=== PATIENT | female | born 1940 | race Caucasian/White ===

== ENCOUNTER → 2017-05-06 | Outpatient (REF) | payer MEDICARE, BC ==
[~2017-05-06] MED LIST: /ADVA50050; /FEXO18TA; /LANS30GR; /VERA40TA; /WARF2TA; /WARF5TA; ACET65TA; DIGO0.126; HYDRODIURIL; MICA80TA; NORV5TAB; VALI5TAB; XOPE1.252; [UNRECOGNIZED DRUG - CODE]
== END ==
LOC: M LAB REF 13:25
PROVIDERS: ATTEND Internal Medicine
DX: I48.2 Chronic atrial fibrillation (principal)

== ENCOUNTER → 2017-09-23 | Outpatient (REF) | payer MEDICARE, BC ==
[2017-09-23 20:43] LABS: DIGOXIN LEVEL 0.4 NG/ML (0.5-2.0); IRON (FE) 77 UG/DL (50-170); PERCENT SATURATION 23.2 % (13.2-45.0); TOTAL IRON BINDING CAPACITY 332 UG/DL (250-450)
== END ==
LOC: M LAB REF 18:24
DX: I48.2 Chronic atrial fibrillation (principal); N18.3 Chronic kidney disease, stage 3 (moderate); D64.9 Anemia, unspecified
CPT/HCPCS: 80162

== ENCOUNTER → 2018-04-27 | Outpatient (REF) | payer MEDICARE, BC ==
[2018-04-28 13:28] LABS: DIGOXIN LEVEL 0.4 NG/ML (0.5-2.0)
[2018-04-28 13:28] LABS: C REACTIVE PROTEIN QUANTITATIV 1.16 MG/DL (0.00-0.30)
== END ==
LOC: M LAB REF 04-28 11:52
DX: R50.9 Fever, unspecified (principal); I48.2 Chronic atrial fibrillation
CPT/HCPCS: 80162

== ENCOUNTER 2018-05-25 15:52 | Emergency (ER) | payer MEDICARE, BC ==
[2018-05-25 16:49] LABS: BASO % 0.3 % (0.0-1.0); EOS # 0.1 10^3/uL (0.0-0.50); EOS % 1.9 % (0.0-3.0); HEMATOCRIT 36.4 % (36.0-47.0); HEMOGLOBIN 11.9 g/dl (12.0-15.5); IMMATURE GRANULOCYTE % 0.5 % (0-3.0); LYMPH % 26.5 % (24.0-44.0); MEAN CORPUSCULAR HEMOGLOBIN 31.9 pg (27.0-33.0); MEAN CORPUSCULAR HGB CONC 32.7 g/dl (32.0-36.5); MEAN CORPUSCULAR VOLUME 97.6 fl (80.0-96.0); MONO # 0.8 10^3/uL (0.0-0.8); MONO % 10.5 % (0.0-5.0); NEUTROPHILS # 4.6 10^3/uL (1.8-7.7); NEUTROPHILS % 60.3 % (36.0-66.0); PLATELET COUNT, AUTOMATED 187 10^3/uL (150-450); RED BLOOD COUNT 3.73 10^6/uL (4.00-5.40); RED CELL DISTRIBUTION WIDTH 13.5 % (11.5-14.5); WHITE BLOOD COUNT 7.5 10^3/uL (4.0-10.0)
[2018-05-25 17:09] LABS: INR 2.33
[2018-05-25 17:36] LABS: ALBUMIN 3.4 GM/DL (3.2-5.2); ALBUMIN/GLOBULIN RATIO 0.97 (1.00-1.93); ALKALINE PHOSPHATASE 88 U/L (45-117); ALT/SGPT 25 U/L (12-78); ANION GAP 7 MEQ/L (8-16); AST/SGOT 22 U/L (7-37); BILIRUBIN,TOTAL 0.5 MG/DL (0.2-1.0); BLOOD UREA NITROGEN 16 MG/DL (7-18); CALCIUM LEVEL 8.7 MG/DL (8.8-10.2); CARBON DIOXIDE LEVEL 31 MEQ/L (21-32); CHLORIDE LEVEL 106 MEQ/L (98-107); CREATININE FOR GFR 0.66 MG/DL (0.55-1.30); DIGOXIN LEVEL 0.3 NG/ML (0.5-2.0); GLOMERULAR FILTRATION RATE > 60.0 (>39); GLUCOSE, FASTING 95 MG/DL (70-100); POTASSIUM SERUM 3.6 MEQ/L (3.5-5.1); SODIUM LEVEL 144 MEQ/L (136-145); TOTAL PROTEIN 6.9 GM/DL (6.4-8.2)
[2018-05-25 18:20] LABS: ABO/RH TYPE MANUAL 1 1
[2018-05-25] MEDS: ACETAMINOPHEN 325 MG TAB PO (19:06)
[2018-05-25] MEDS: ONDANSETRON 4MG/2ML VIAL (J2405) IV (19:22)
== END 2018-05-25 19:30 | disposition short-term general hospital (02) ==
LOC: M ED 15:52
DX: S06.5X0A Traumatic subdural hemorrhage without loss of consciousness, initial encounter (principal); W01.198A Fall on same level from slipping, tripping and stumbling with subsequent striking against other object, initial encounter; Y92.096 Garden or yard of other non-institutional residence as the place of occurrence of the external cause; I48.91 Unspecified atrial fibrillation; I10 Essential (primary) hypertension; J45.909 Unspecified asthma, uncomplicated; E78.9 Disorder of lipoprotein metabolism, unspecified; Z88.6 Allergy status to analgesic agent; Z88.5 Allergy status to narcotic agent; Z88.0 Allergy status to penicillin; Z79.899 Other long term (current) drug therapy; Z79.01 Long term (current) use of anticoagulants
CPT/HCPCS: J2405

== ENCOUNTER → 2018-06-05 | Outpatient (CLI) | payer MEDICARE, BC | LOC: M RAD 12:11 | DX: G81.91 Hemiplegia, unspecified affecting right dominant side (principal) | CPT/HCPCS: 70450 ==

== ENCOUNTER 2018-06-08 16:01 | Emergency (ER) | payer MEDICARE, BC ==
[2018-06-08 17:45] LABS: KETONE, URINE AUTO RFX NEGATIVE (NEGATIVE); MUCUS, URINE RFX SMALL (NEGATIVE); NITRITE, URINE AUTO RFX NEGATIVE (NEGATIVE); RBC, URINE AUTO RFX 2 /HPF (0-3); SPECIFIC GRAVITY UR AUTO RFX 1.015 (1.002-1.035); SQUAM EPITHELIAL CELL UR AURFX 0 /HPF (0-6); WBC, URINE AUTO RFX 4 /HPF (0-3); YEAST LIKE CELL URINE AUTO RFX SMALL
[2018-06-08] MEDS: hydrALAZINE INJ 20 MG/ML VIAL IV ×2 (18:09→18:41)
[2018-06-08 18:26] LABS: BASO % 0.3 % (0.0-1.0); EOS % 0.2 % (0.0-3.0); HEMATOCRIT 34.5 % (36.0-47.0); HEMOGLOBIN 11.7 g/dl (12.0-15.5); IMMATURE GRANULOCYTE % 0.5 % (0-3.0); LYMPH % 13.6 % (24.0-44.0); MEAN CORPUSCULAR HEMOGLOBIN 32.1 pg (27.0-33.0); MEAN CORPUSCULAR HGB CONC 33.9 g/dl (32.0-36.5); MEAN CORPUSCULAR VOLUME 94.5 fl (80.0-96.0); MONO # 1.5 10^3/uL (0.0-0.8); MONO % 9.9 % (0.0-5.0); NEUTROPHILS # 11.1 10^3/uL (1.8-7.7); NEUTROPHILS % 75.5 % (36.0-66.0); PLATELET COUNT, AUTOMATED 424 10^3/uL (150-450); RED BLOOD COUNT 3.65 10^6/uL (4.00-5.40); RED CELL DISTRIBUTION WIDTH 13.1 % (11.5-14.5); WHITE BLOOD COUNT 14.7 10^3/uL (4.0-10.0)
[2018-06-08 19:05] LABS: ALBUMIN 2.8 GM/DL (3.2-5.2); ALBUMIN/GLOBULIN RATIO 0.68 (1.00-1.93); ALKALINE PHOSPHATASE 93 U/L (45-117); ALT/SGPT 66 U/L (12-78); ANION GAP 6 MEQ/L (8-16); AST/SGOT 45 U/L (7-37); BILIRUBIN,DIRECT 0.2 MG/DL (0.0-0.2); BILIRUBIN,TOTAL 0.6 MG/DL (0.2-1.0); BLOOD UREA NITROGEN 15 MG/DL (7-18); CALCIUM LEVEL 8.6 MG/DL (8.8-10.2); CARBON DIOXIDE LEVEL 31 MEQ/L (21-32); CHLORIDE LEVEL 98 MEQ/L (98-107); CREATININE FOR GFR 0.49 MG/DL (0.55-1.30); GLOMERULAR FILTRATION RATE > 60.0 (>39); GLUCOSE, FASTING 119 MG/DL (70-100); POTASSIUM SERUM 4.5 MEQ/L (3.5-5.1); SODIUM LEVEL 135 MEQ/L (136-145); TOTAL PROTEIN 6.9 GM/DL (6.4-8.2)
[2018-06-08 19:13] LABS: LEUKOCYTE ESTERASE UR AUTO RFX TRACE (NEGATIVE)
[2018-06-08 19:24] LABS: CK-MB VALUE MASS < 1.0 NG/ML (<3.6); CPK CREATINE PHOSPHOKINASE 32 U/L (26-192); DIGOXIN LEVEL 0.2 NG/ML (0.5-2.0); MB/CK RELATIVE INDEX 3.12 (< OR =4); TROPONIN I < 0.02 NG/ML (< 0.10)
[2018-06-08 19:25] LABS: ETHYL ALCOHOL (ETHANOL) < 0.003 % (0.000-0.010)
== END 2018-06-08 18:54 | disposition short-term general hospital (02) ==
LOC: M ED 16:01
DX: S06.5X0D Traumatic subdural hemorrhage without loss of consciousness, subsequent encounter (principal); W19.XXXD Unspecified fall, subsequent encounter; I48.91 Unspecified atrial fibrillation; J44.9 Chronic obstructive pulmonary disease, unspecified; I10 Essential (primary) hypertension; Z79.899 Other long term (current) drug therapy; Z79.82 Long term (current) use of aspirin; Z79.01 Long term (current) use of anticoagulants; Z88.0 Allergy status to penicillin; Z88.5 Allergy status to narcotic agent; Z88.6 Allergy status to analgesic agent; I73.9 Peripheral vascular disease, unspecified
CPT/HCPCS: 71046

== ENCOUNTER → 2018-06-08 | Outpatient (CLI) | payer MEDICARE, BC | LOC: M RAD 10:31 | DX: I73.9 Peripheral vascular disease, unspecified (principal); S06.5X0D Traumatic subdural hemorrhage without loss of consciousness, subsequent encounter ==

== ENCOUNTER → 2018-06-22 | Outpatient (REF) ==
[2018-06-22 15:12] LABS: ANION GAP 7 MEQ/L (8-16); BLOOD UREA NITROGEN 8 MG/DL (7-18); CALCIUM LEVEL 8.4 MG/DL (8.8-10.2); CARBON DIOXIDE LEVEL 34 MEQ/L (21-32); CHLORIDE LEVEL 102 MEQ/L (98-107); CREATININE FOR GFR 0.41 MG/DL (0.55-1.30); GLOMERULAR FILTRATION RATE > 60.0 (>39); GLUCOSE, FASTING 132 MG/DL (70-100); POTASSIUM SERUM 3.2 MEQ/L (3.5-5.1); SODIUM LEVEL 143 MEQ/L (136-145)
== END ==
LOC: SKLAB3 10:49
DX: S06.5X0A Traumatic subdural hemorrhage without loss of consciousness, initial encounter (principal)

== ENCOUNTER → 2018-06-29 | Outpatient (REF) ==
[2018-06-29 09:46] LABS: ANION GAP 6 MEQ/L (8-16); BLOOD UREA NITROGEN 8 MG/DL (7-18); CALCIUM LEVEL 8.2 MG/DL (8.8-10.2); CARBON DIOXIDE LEVEL 34 MEQ/L (21-32); CHLORIDE LEVEL 103 MEQ/L (98-107); CREATININE FOR GFR 0.34 MG/DL (0.55-1.30); GLOMERULAR FILTRATION RATE > 60.0 (>39); GLUCOSE, FASTING 99 MG/DL (70-100); POTASSIUM SERUM 3.2 MEQ/L (3.5-5.1); SODIUM LEVEL 143 MEQ/L (136-145)
== END ==
LOC: SKLAB3 07:15
DX: S06.5X0A Traumatic subdural hemorrhage without loss of consciousness, initial encounter (principal)

== ENCOUNTER 2018-06-30 10:19 | Emergency (ER) | payer MEDICARE, BC ==
[2018-06-30 12:03] LABS: BASO % 0.3 % (0.0-1.0); EOS # 0.1 10^3/uL (0.0-0.50); EOS % 1.4 % (0.0-3.0); HEMATOCRIT 31.8 % (36.0-47.0); HEMOGLOBIN 10.2 g/dl (12.0-15.5); IMMATURE GRANULOCYTE % 0.5 % (0-3.0); LYMPH # 2.4 10^3/uL (1.5-4.5); LYMPH % 36.8 % (24.0-44.0); MEAN CORPUSCULAR HEMOGLOBIN 30.9 pg (27.0-33.0); MEAN CORPUSCULAR HGB CONC 32.1 g/dl (32.0-36.5); MEAN CORPUSCULAR VOLUME 96.4 fl (80.0-96.0); MONO # 0.6 10^3/uL (0.0-0.8); MONO % 9.7 % (0.0-5.0); NEUTROPHILS # 3.4 10^3/uL (1.8-7.7); NEUTROPHILS % 51.3 % (36.0-66.0); PLATELET COUNT, AUTOMATED 297 10^3/uL (150-450); RED CELL DISTRIBUTION WIDTH 13.8 % (11.5-14.5); WHITE BLOOD COUNT 6.6 10^3/uL (4.0-10.0)
[2018-06-30 12:40] LABS: ALBUMIN 2.6 GM/DL (3.2-5.2); ALKALINE PHOSPHATASE 74 U/L (45-117); ALT/SGPT 25 U/L (12-78); ANION GAP 6 MEQ/L (8-16); AST/SGOT 19 U/L (7-37); BILIRUBIN,DIRECT 0.2 MG/DL (0.0-0.2); BILIRUBIN,TOTAL 0.6 MG/DL (0.2-1.0); BLOOD UREA NITROGEN 6 MG/DL (7-18); CALCIUM LEVEL 8.6 MG/DL (8.8-10.2); CARBON DIOXIDE LEVEL 33 MEQ/L (21-32); CHLORIDE LEVEL 103 MEQ/L (98-107); CK-MB VALUE MASS < 1.0 NG/ML (<3.6); CPK CREATINE PHOSPHOKINASE 39 U/L (26-192); CREATININE FOR GFR 0.32 MG/DL (0.55-1.30); GLOMERULAR FILTRATION RATE > 60.0 (>39); GLUCOSE, FASTING 109 MG/DL (70-100); MB/CK RELATIVE INDEX 2.56 (< OR =4); POTASSIUM SERUM 3.2 MEQ/L (3.5-5.1); SODIUM LEVEL 142 MEQ/L (136-145); TOTAL PROTEIN 6.3 GM/DL (6.4-8.2); TROPONIN I < 0.02 NG/ML (< 0.10)
[2018-06-30 13:09] LABS: DIGOXIN LEVEL 0.2 NG/ML (0.5-2.0)
[2018-06-30 13:28] LABS: INR 1.12; PROTHROMBIN TIME 14.6 SECONDS (12.1-14.4)
[2018-06-30 13:29] LABS: PARTIAL THROMBOPLASTIN TIME 30.2 SECONDS (25.4-37.6)
[2018-06-30] MEDS: POTASSIUM CHLORIDE 10 MEQ SR TABLET PO (16:53)
== END 2018-06-30 17:23 | disposition home or self-care (01) ==
LOC: M ED 10:19
DX: R29.6 Repeated falls (principal); I10 Essential (primary) hypertension; I48.91 Unspecified atrial fibrillation; J30.9 Allergic rhinitis, unspecified; H40.9 Unspecified glaucoma; Z86.79 Personal history of other diseases of the circulatory system; Z88.6 Allergy status to analgesic agent; Z88.5 Allergy status to narcotic agent; Z88.0 Allergy status to penicillin; Z79.899 Other long term (current) drug therapy; Z79.82 Long term (current) use of aspirin
CPT/HCPCS: 70450

== ENCOUNTER → 2018-07-06 | Outpatient (REF) ==
[2018-07-06 08:45] LABS: ANION GAP 7 MEQ/L (8-16); BLOOD UREA NITROGEN 9 MG/DL (7-18); CALCIUM LEVEL 8.9 MG/DL (8.8-10.2); CARBON DIOXIDE LEVEL 33 MEQ/L (21-32); CHLORIDE LEVEL 102 MEQ/L (98-107); CREATININE FOR GFR 0.43 MG/DL (0.55-1.30); GLOMERULAR FILTRATION RATE > 60.0 (>39); GLUCOSE, FASTING 109 MG/DL (70-100); SODIUM LEVEL 142 MEQ/L (136-145)
== END ==
LOC: SKLAB3 07:00
DX: E87.1 Hypo-osmolality and hyponatremia (principal)

== ENCOUNTER → 2018-07-10 | Outpatient (REF) ==
[2018-07-10 11:50] LABS: ANION GAP 5 MEQ/L (8-16); BLOOD UREA NITROGEN 10 MG/DL (7-18); CALCIUM LEVEL 8.6 MG/DL (8.8-10.2); CARBON DIOXIDE LEVEL 32 MEQ/L (21-32); CHLORIDE LEVEL 107 MEQ/L (98-107); CREATININE FOR GFR 0.56 MG/DL (0.55-1.30); GLOMERULAR FILTRATION RATE > 60.0 (>39); GLUCOSE, FASTING 134 MG/DL (70-100); POTASSIUM SERUM 3.6 MEQ/L (3.5-5.1); SODIUM LEVEL 144 MEQ/L (136-145)
== END ==
LOC: SKLAB3 07:00
DX: I10 Essential (primary) hypertension (principal); E87.1 Hypo-osmolality and hyponatremia

== ENCOUNTER 2018-07-11 14:33 | Emergency (ER) | payer MEDICARE, BC | END 2018-07-11 15:56 | disposition home or self-care (01) | LOC: M ED 14:33 | DX: Z04.89 Encounter for examination and observation for other specified reasons (principal); W07.XXXA Fall from chair, initial encounter; Y92.128 Other place in nursing home as the place of occurrence of the external cause; I10 Essential (primary) hypertension; E78.5 Hyperlipidemia, unspecified; I48.91 Unspecified atrial fibrillation; Z79.899 Other long term (current) drug therapy; Z79.82 Long term (current) use of aspirin; Z88.0 Allergy status to penicillin; Z88.5 Allergy status to narcotic agent; Z88.8 Allergy status to other drugs, medicaments and biological substances | CPT/HCPCS: 70450 ==

== ENCOUNTER → 2018-07-15 | Outpatient (REF) ==
[2018-07-15 15:18] LABS: AMORPHOUS SEDIMENT LARGE (NEGATIVE); APPEARANCE, URINE TURBID (CLEAR); BACTERIA, URINE AUTO 2+ (NEGATIVE); BILIRUBIN, URINE AUTO NEGATIVE (NEGATIVE); BLOOD, URINE BLOOD NEGATIVE (NEGATIVE); COLOR, URINE YELLOW (YELLOW); GLUCOSE, URINE (UA) AUTO NEGATIVE (NEGATIVE); KETONE, URINE AUTO NEGATIVE (NEGATIVE); LEUKOCYTE ESTERASE, URINE AUTO 2+ (NEGATIVE); MUCUS, URINE SMALL (NEGATIVE); NITRITE, URINE AUTO NEGATIVE (NEGATIVE); PROTEIN, URINE AUTO 2+ mg/dL (NEGATIVE); RBC, URINE AUTO 0 /HPF (0-3); SQUAMOUS EPITHELIAL CELL UR AU 2 /HPF (0-6); UROBILINOGEN, URINE AUTO 0.2 mg/dL (0.0-2.0); WBC, URINE AUTO TNTC /HPF (0-3)
== END ==
LOC: SKLAB3 14:42
DX: R82.90 Unspecified abnormal findings in urine (principal)

== ENCOUNTER → 2018-07-20 | Outpatient (REF) ==
[2018-07-22 14:16] LABS: LEVETIRACETAM (KEPPRA) 21.6 ug/mL (10.0-40.0)
== END ==
LOC: SKLAB3 07:00
DX: Z51.81 Encounter for therapeutic drug level monitoring (principal); Z79.899 Other long term (current) drug therapy

== ENCOUNTER → 2018-07-29 | Outpatient (REF) | LOC: SKLAB3 08:20 | DX: R00.2 Palpitations (principal) ==

== ENCOUNTER → 2018-08-03 | Outpatient (REF) ==
[2018-08-03 08:31] LABS: HEMOGLOBIN 10.6 g/dl (12.0-15.5); MEAN CORPUSCULAR HGB CONC 31.2 g/dl (32.0-36.5); MEAN CORPUSCULAR VOLUME 99.4 fl (80.0-96.0); PLATELET COUNT, AUTOMATED 248 10^3/uL (150-450); RED BLOOD COUNT 3.42 10^6/uL (4.00-5.40); RED CELL DISTRIBUTION WIDTH 13.6 % (11.5-14.5); WHITE BLOOD COUNT 7.5 10^3/uL (4.0-10.0)
[2018-08-03 09:14] LABS: ANION GAP 8 MEQ/L (8-16); BLOOD UREA NITROGEN 11 MG/DL (7-18); CALCIUM LEVEL 8.7 MG/DL (8.8-10.2); CARBON DIOXIDE LEVEL 30 MEQ/L (21-32); CHLORIDE LEVEL 103 MEQ/L (98-107); CHOLESTEROL LEVEL 139 MG/DL (<200); CHOLESTEROL RISK RATIO 3.475 (<5); CREATININE FOR GFR 0.48 MG/DL (0.55-1.30); DIGOXIN LEVEL 0.2 NG/ML (0.5-2.0); GLOMERULAR FILTRATION RATE > 60.0 (>32); GLUCOSE, FASTING 90 MG/DL (70-100); HDL CHOLESTEROL 40 MG/DL (>40); LDL CHOLESTEROL 72 MG/DL (<100); NON-HDL-C 99 MG/DL; POTASSIUM SERUM 4.1 MEQ/L (3.5-5.1); SODIUM LEVEL 141 MEQ/L (136-145); TRIGLYCERIDES LEVEL 133 MG/DL (<150)
[2018-08-06 14:15] LABS: LEVETIRACETAM (KEPPRA) 24.7 ug/mL (10.0-40.0)
== END ==
LOC: SKLAB3 12:44
DX: E78.5 Hyperlipidemia, unspecified (principal)

== ENCOUNTER → 2018-08-13 | Outpatient (REF) ==
[~2018-08-13] MED LIST changes: +ALB2.5NEB INH; +ALBU17IN2 INH; +ASPI1TAB PO; +ASPI81TAEC PO; +ATOR1TAB19 PO; +AZOP0.2S OU; +CETI10CH PO; +CETI10TA PO; +COLA100C5 PO; +DULC10SU2 PR; +ENEMENE16 PR; +ENSU-12 PO; +ENSULIQ64 PO; +IRBE300T10 PO; +KEPP1TAB2 PO; +LANO62.5 PO; +LORA10TA3 PO; +MILK12002 PO; +MONT10TA2 PO; +OCUVTAB4 PO; +PANT40TA3 PO; +POTA10TA16 PO; +PRED10TA2 PO; +ROBILIQ22 PO; +SODI1TAB6 PO; +TIMO0.5S29 OU; +TYLE325T5 PO; +VERA100C PO; +VIMP100T PO; +XALA0.007 OU
[2018-08-13 15:15] LABS: INFLUENZA A AMPLIFICATION NEGATIVE (NEGATIVE); INFLUENZA B AMPLIFICATION NEGATIVE (NEGATIVE)
== END ==
LOC: SKLAB3 14:22
PROVIDERS: ATTEND Internal Medicine
DX: J06.9 Acute upper respiratory infection, unspecified (principal)

== ENCOUNTER 2018-08-15 09:05 | Inpatient (IN) | payer MEDICARE, BC ==
[~2018-08-15] VITALS: Ht 144.8 cm; Wt 60.5 kg
[2018-08-15] MEDS: levETIRAcetam 250MG TABLET (KEPPRA) PO SCH ×2 (09:00→20:11)
[2018-08-15] MEDS: IRBESARTAN 150 MG TAB PO SCH (09:00)
[2018-08-15] MEDS: LACOSAMIDE 50 MG TAB (VIMPAT) PO SCH ×2 (09:00→20:11)
[~2018-08-15 09:05] MED LIST changes: -ALB2.5NEB INH; -ENSULIQ64 PO; -PRED10TA2 PO
[2018-08-15] MEDS ORDERED: ENSULIQ64 PO (09:36)
[2018-08-15] MEDS ORDERED: ALB2.5NEB INH (09:36)
[2018-08-15] MEDS ORDERED: PRED10TA2 PO (09:36)
[2018-08-15] MEDS ORDERED: ACETAMINOPHEN 325 MG TAB PO ONE (09:45)
--- NOTE | 2018-08-15 09:47 | REP ---
Clinical: Trauma. Technique: AP and lateral views of the left humerus. Findings: Age-related osteopenia and degenerative changes at the shoulder noted. No acute fracture dislocation. No subcutaneous emphysema or radiodense foreign body. Impression: No acute fracture dislocation. Electronically Signed by Garfield Gutierrez MD 08/15/2018 09:39 A
--- NOTE | 2018-08-15 09:47 | REP ---
Clinical: Trauma. Comparison: 06/30/2018 . Findings: Age-related atrophy and microvascular ischemic changes are appreciated. The ventricles and sulci are symmetric. Marques-white differentiation is maintained. There is no evidence for acute intracranial hemorrhage, mass/mass effect, pathology or infarction. No extra-axial fluid collection. Calvarium is intact. Partial opacification of the ethmoid air cells suggest mild sinus disease. Impression: Age related atrophy and microvascular ischemic changes. No acute intracranial hemorrhage, infarction, or mass/mass effect. Mild ethmoid sinus disease. Electronically Signed by Garfield Gutierrez MD 08/15/2018 09:39 A
--- NOTE | 2018-08-15 09:50 | REP ---
Clinical: Trauma. Technique: Axial noncontrast images from the skull base to the thoracic inlet with coronal and sagittal re-formations. Comparison: 07/11/2018. Findings: Alignment and lordosis maintained. No acute fracture / compression injury or subluxation. Advanced multilevel degenerative disc osteophyte complexes are appreciated and predominantly noted at the C5-6 level where posterior osteophytes cause chronic canal stenosis to approximately 5.7 mm AP diameter. Posterior elements and spinous processes are intact. Prevertebral soft tissues are normal. Impression: 1. Chronic stable degenerative changes. No evidence for cervical spine trauma/injury. 2. Stable advanced multilevel degenerative changes primarily at C5-6 where posterior osteophytes and calcification of the ligamentous causes chronic canal stenosis. Electronically Signed by Garfield Gutierrez MD 08/15/2018 09:42 A
--- NOTE | 2018-08-15 09:51 | REP ---
Clinical: Trauma. Technique: AP, lateral, bilateral oblique views of the right wrist. Findings: Age-related osteopenia and arthritic degenerative changes are appreciated including joint space narrowing at the radiocarpal joint as well as irregularities and chronic mild subluxation at the first carpometacarpal joint. No obvious acute fracture dislocation. Impression: Osteopenia and degenerative changes. No obvious acute fracture or dislocation identified. Electronically Signed by Garfield Gutierrez MD 08/15/2018 09:43 A
[2018-08-15 10:05] LABS: BASO % 0.6 % (0.0-1.0); EOS # 0.2 10^3/uL (0.0-0.50); EOS % 3.1 % (0.0-3.0); HEMATOCRIT 34.6 % (36.0-47.0); LYMPH # 1.7 10^3/uL (1.5-4.5); LYMPH % 26.7 % (24.0-44.0); MEAN CORPUSCULAR HGB CONC 31.8 g/dl (32.0-36.5); MEAN CORPUSCULAR VOLUME 97.5 fl (80.0-96.0); MONO # 0.7 10^3/uL (0.0-0.8); MONO % 10.8 % (0.0-5.0); NEUTROPHILS # 3.7 10^3/uL (1.8-7.7); NEUTROPHILS % 58.5 % (36.0-66.0); PLATELET COUNT, AUTOMATED 212 10^3/uL (150-450); RED BLOOD COUNT 3.55 10^6/uL (4.00-5.40); WHITE BLOOD COUNT 6.4 10^3/uL (4.0-10.0)
[2018-08-15 10:23] LABS: INR 1.04; PROTHROMBIN TIME 13.7 SECONDS (12.1-14.4)
[2018-08-15] MEDS ORDERED: ALBUTEROL SULFATE 2.5 MG/0.5 ML INH NEB SOLN NEB ONE (10:45)
[2018-08-15 11:00] LABS: ALBUMIN 2.8 GM/DL (3.2-5.2); ALT/SGPT 12 U/L (12-78); BILIRUBIN,TOTAL 0.4 MG/DL (0.2-1.0); BLOOD UREA NITROGEN 10 MG/DL (7-18); CALCIUM LEVEL 8.5 MG/DL (8.8-10.2); CARBON DIOXIDE LEVEL 31 MEQ/L (21-32); CHLORIDE LEVEL 105 MEQ/L (98-107); CK-MB VALUE MASS < 1.0 NG/ML (<3.6); CPK CREATINE PHOSPHOKINASE 41 U/L (26-192); CREATININE FOR GFR 0.37 MG/DL (0.55-1.30); DIGOXIN LEVEL 0.3 NG/ML (0.5-2.0); GLOMERULAR FILTRATION RATE > 60.0 (>32); GLUCOSE, FASTING 111 MG/DL (70-100); MB/CK RELATIVE INDEX 2.44 (< OR =4); POTASSIUM SERUM 4.1 MEQ/L (3.5-5.1); SODIUM LEVEL 142 MEQ/L (136-145); TOTAL PROTEIN 6.7 GM/DL (6.4-8.2); TROPONIN I < 0.02 NG/ML (< 0.10)
--- NOTE | 2018-08-15 11:14 | REP ---
Clinical: Acute cough . Comparison: 06/08/2018 . Findings: The mediastinum and cardiac silhouette are stable and within normal limits for portable technique. The lung villanueva demonstrate chronic interstitial disease without acute consolidation, effusion, or pneumothorax. Skeletal structures are intact. Impression: No acute cardiopulmonary process appreciated. Electronically Signed by Garfield Gutierrez MD 08/15/2018 11:06 A
[2018-08-15] MEDS ORDERED: MOM 30ML SUSPENSION UDC PO PRN (12:00)
[2018-08-15] MEDS ORDERED: BISACODYL 10 MG SUPP PR PRN (12:00)
[2018-08-15] MEDS ORDERED: ACETAMINOPHEN TAB 650MG DOSE (2X325MG) PO PRN (12:00)
[2018-08-15] MEDS ORDERED: ALBUTEROL 90 MCG/ACT 8GM HFA INHALER INH PRN (12:00)
[2018-08-15] MEDS ORDERED: ALBUTEROL SULFATE 2.5 MG/0.5 ML INH NEB SOLN INH PRN (12:00)
[2018-08-15] MEDS ORDERED: ACETAMINOPHEN 325 MG TAB PO PRN (12:00)
[2018-08-15] MEDS: DOCUSATE SODIUM 100 MG CAP PO SCH ×2 (12:16→20:11)
[2018-08-15] MEDS: PANTOPRAZOLE 40MG TAB (PROTONIX) PO SCH (12:16)
[2018-08-15] MEDS: POTASSIUM CHLORIDE 10 MEQ SR TABLET PO SCH (12:17)
--- NOTE | 2018-08-15 12:17 | HPEPDOC ---
[facility] Medical History & Physical Date of Admission Aug 15, 2018 Primary Care Physician: FROILAN HERNANDES DO Attending Physician: CHRISTINE MARCUS MD History and Physical CHIEF COMPLAINT: Fall HISTORY OF PRESENT ILLNESS: Patient lives this and keep home where she is undergoing rehabilitation unclear if she will return home Lasix and she remembers going to sleep last night the next issue murmurs being on the floor of her room outside of her bed having significant difficulty expressing words to call for help but nobody was present since 5-10 minutes before nurse came to her aid and helped her up from the floor. She tells me that they called for help and by the time she arrived to the emergency room her symptoms were resolving in regards to her speech she has no recollection of events of this morning remembers only going to bed last night and at the time she was having a little bit of a cough she has been sick for the last 3-4 days with a respiratory tract infection where she is living. At the present time she tells me she feels essentially back to her normal. Her story prior to this is somewhat more complicated she has a history of A. fib and was on Coumadin for years however back in 05/25/18 she was found to have a subdural hematoma for which no intervention was taken she was d iscontinued from Coumadin started on Keppra and continued on aspirin and Plavix as per neurosurgical recommendations and sent to [facility] for rehabilitation. While she was there she developed right-sided weakness and on 06/08/2018 she was sent to the ER and found that hematoma had increased in size she was then transferred [facility] where she developed seizure activity and Vimpat was added to her antiepil eptic regimen. She was then discharged back to her current living environment where she has been since PAST MEDICAL HISTORY: 1. Chronic atrial fibrillation. 2. Subdural hematoma. An associated seizure disorder 3. Hypertension. 4. Asthma/obstructive lung disease 5. Glaucoma 6. Allergic rhinitis PAST SURGICAL HISTORY: 1. Tubal ligation. 2. D&C. 3. Patient is sure there is another but she cannot recall. SOCIAL HISTORY: Marital status: . Resides in: Rehabilitation Employment: Retired Tobacco use:Former smoker her was a longtime smoker in the house as well ETOH: Denies Other relevant social factors: Patient is a DNR/DNI her sisters are healthcare proxy FAMILY HISTORY: Noncontributory ALLERGIES: Please see below. Asthma documented however upset stomach is adverse reaction REVIEW OF SYSTEMS: Negative other than HPI HOME MEDICATIONS: Please see below. PHYSICAL EXAMINATION: VITAL SIGNS: Temperature 98.4, pulse 67, respiratory rate 16, blood pressure 168/81, pulse oximetry 98% on 2 L nasal cannula GENERAL APPEARANCE: Pleasant elderly female lying in bed she does not appear to be in any acute distress. HEENT: Possibly some subtle left facial droop otherwise cranial nerves II through XII are grossly intact. CARDIOVASCULAR: S1-S2 irregularly irregular she is not tachycardic. LUNGS: Clear To auscultation bilaterally. ABDOMEN: Bowel sounds are present The abdomen is soft. EXTREMITIES: no Clubbing cyanosis or edema. NEUROLOGICAL: Focal deficits. Thought 5 strength throughout LABORATORY DATA: See below. IMAGING: CT head: Age-related atrophy and microvascular ischemic changes no acute intracranial hemorrhage mild ethmoid sinus disease Cervical spine CT: Chronic stable degenerative changes no evidence of cervical spine trauma or injury stable advanced multilevel degenerative changes primarily at C5-C6 chronic canal stenosis Humerus x-ray: No acute fracture dislocation Wrist x-ray: Osteopenia and degenerative changes no obvious acute fracture di slocation Chest x-ray: No acute cardio pulmonary process appreciated MICROBIOLOGY: Please see below. ASSESSMENT: This is an 78-year-old female status post an unwitnessed fall. 1. Fall: Possibly syncope the etiology is unclear she did have some expressive aphasia following it may benefit post ictal event that she may have had a seizure despite her antiepileptic medication. It is also certainly possible that the patient suffered a TIA and awoke with symptoms which are now resolving. I'll recheck the neurology service for consultation we'll continue her antiepileptics monitor on telemetry check an MRI of the brain as well as an EEG CT scan is unrevealing thus far. She is certainly at risk for TIAs and strokes not being anticoagulated with her recent subdural unfortunately I have her see little that we can do regarding this. It is also possible that given her recent URI her seizure threshold his lower left PTOT evaluate her elevated she recheck restaurant PCR panel given that the previous one was positive for multiple organisms which I feel somewhat unlikely. 2. Chronic atrial fibrillation: Continue with verapamil and digoxin no anticoagulation as outlined above 3. Seizure disorder: Later subdural hematoma she is not on any anticoagulation she is continued on Vimpat and Keppra and neurology consult pending 4. Obstructive lung disease: Asthma however she certainly at risk for COPD continue with albuterol nebulizers may be slightly worse in the setting of an acute viral URI we are rechecking her respiratory PCR panel she is currently requiring 2 L of oxygen she states that she previously has required oxygen in the past intermittently 5. Gastroesophageal reflux disease: Continue with pantoprazole 6. Chronic constipation: Continue with home bowel regimen 7. Hypertension: Continue with irbesartan 8. Dyslipidemia: Continue with atorvastatin 9. Allergic rhinitis: Continue with montelukast and loratadine 10. DVT prophylaxis: Sequentials and teds no pharmacological agents 11. Glaucoma: Okay to continue home eye drops Disposition: Admitted to progressive care unit Vital Signs Vital Signs Date Time Temp Pulse Resp B/P (MAP) Pulse Ox O2 Delivery O2 Flow Rate FiO2 08/15/18 11:19 75 144/90 (108) 98 Nasal Cannula 2.0 08/15/18 09:12 98.4 16 Laboratory Data Labs 24H Laboratory Tests 2 08/15/18 09:58: Immature Granulocyte % (Auto) 0.3, White Blood Count 6.4, Red Blood Count 3.55L, Hemoglobin 11.0L, Hematocrit 34.6L, Mean Corpuscular Volume 97.5H, Mean Corpuscular Hemoglobin 31.0, Mean Corpuscular Hemoglobin Concent 31.8L, Red Cell Distribution Width 13.0, Platelet Count 212, Neutrophils (%) (Auto) 58.5, Lymphocytes (%) (Auto) 26.7, Monocytes (%) (Auto) 10.8H, Eosinophils (%) (Auto) 3.1H, Basophils (%) (Auto) 0.6, Neutrophils # (Auto) 3.7, Lymphocytes # (Auto) 1.7, Monocytes # (Auto) 0.7, Eosinophils # (Auto) 0.2, Basophils # (Auto) 0.0, Nucleated Red Blood Cells % (auto) 0.0, Prothrombin Time 13.7, Prothromb Time International Ratio 1.04, Anion Gap 6L, Glomerular Filtration Rate > 60.0, Blood Urea Nitrogen 10, Creatinine 0.37L, Sodium Level 142, Potassium Level 4.1, Chloride Level 105, Carbon Dioxide Level 31, Calcium Level 8.5L, Aspartate Amino Transf (AST/SGOT) 21, Alanine Aminotransferase (ALT/SGPT) 12, Total Creatine Kinase 41, Alkaline Phosphatase 76, Total Bilirubin 0.4, Total Protein 6.7, Albumin 2.8L, Creatine Kinase MB < 1.0, Creatine Kinase MB Relative Index 2.44, Troponin I < 0.02, Albumin/Globulin Ratio 0.72L, Digoxin Level 0.3L 08/15/18 11:28: CBC/BMP Laboratory Tests 08/15/18 09:58 Red Blood Count 3.55 L, Mean Corpuscular Volume 97.5 H, Mean Corpuscular Hemoglobin 31.0, Mean Corpuscular Hemoglobin Concent 31.8 L, Red Cell Distribution Width 13.0, Neutrophils (%) (Auto) 58.5, Lymphocytes (%) (Auto) 26.7, Monocytes (%) (Auto) 10.8 H, Eosinophils (%) (Auto) 3.1 H, Basophils (%) (Auto) 0.6, Neutrophils # (Auto) 3.7, Lymphocytes # (Auto) 1.7, Monocytes # (Auto) 0.7, Eosinophils # (Auto) 0.2, Basophils # (Auto) 0.0, Calcium Level 8.5 L, Aspartate Amino Transf (AST/SGOT) 21, Alanine Aminotransferase (ALT/SGPT) 12, Total Creatine Kinase 41, Alkaline Phosphatase 76, Total Bilirubin 0.4, Total Protein 6.7, Albumin 2.8 L Home Medications Scheduled (Ensure Enlive) 1 Liq Liq, 120 ML PO BID Atorvastatin Calcium (Atorvastatin Calcium) 10 Mg Tab, 5 MG PO QHS Brinzolamide (Azopt) 1 % Suyapa, 1 DROP OU BID Digoxin (Lanoxin) 62.5 Mcg Tab, 62.5 MCG PO 3XW MON,WED,FRI Docusate Sodium (Colace) 100 Mg Cap, 100 MG PO BID Irbesartan (Irbesartan) 300 Mg Tab, 300 MG PO DAILY Lacosamide (Vimpat) 100 Mg Tab, 100 MG PO BID Latanoprost (Xalatan) 0.005 % Kallie, 1 DROP OU QHS Levetiracetam (Keppra) 750 Mg Tab, 750 MG PO BID Loratadine (Loratadine) 10 Mg Tab, 10 MG PO QHS Montelukast Sodium (Montelukast Sodium) 10 Mg Tab, 10 MG PO QHS Multivitamin Areds (Preservision Areds) 1 Tab Tab, 1 TAB PO BID Pantoprazole Sodium (Pantoprazole Sodium) 40 Mg Tab, 40 MG PO DAILY Potassium Chloride (Potassium Chloride ER) 10 Meq Tab, 20 MEQ PO DAILY Prednisone (Prednisone) 10 Mg Tab, 10 MG PO DAILY TAKE @ 1400. LAST DOSE TO BE 08/16/18 Sodium Chloride (Sodium Chloride) 1 Gm Tab, 1 GM PO TID Timolol Maleate (Timolol Maleate) 0.5 % Kalile, 1 DROP OU BID Verapamil Hcl (Verapamil HCl ER) 100 Mg Cap, 100 MG PO QHS Scheduled PRN (Robitussin Peak [place] 10-100 mg/5Ml) 1 Liq Liq, 10 ML PO QID PRN for COUGH Acetaminophen (Tylenol) 325 Mg Tab, 650 MG PO Q4H PRN for PAIN Albuterol Sulfate (Proventil Hfa) 108 Mcg/Act Aer, 2 PUFFS INH Q6H PRN for SHORTNESS OF BREATH Albuterol Sulfate (Albuterol Sulfate) 2.5 Mg/0.5 Ml Neb, 2.5 MG INH Q4H PRN for SHORTNESS OF BREATH Bisacodyl (Dulcolax) 10 Mg Sup, 10 MG OR DAILY PRN for CONSTIPATION Milk Of Magnesia (Milk of Magnesia) 1,200 Mg/15 Ml Suyapa, 30 ML PO DAILY PRN for CONSTIPATION Sodium Phosphate/Biphosphate (Enema 7-19 gm/118Ml) 1 Andrew Andrew, 1 ANDREW OR DAILY PRN for CONSTIPATION Allergies Coded Allergies: Aspirin (Verified Allergy, Unknown, 11/24/12) Codeine (Verified Allergy, Unknown, 11/24/12) Penicillins (Verified Allergy, Unknown, 11/24/12) Penicillins Cross Reactors (Verified Allergy, Unknown, 11/24/12) CHRISTINE MARCUS MD Aug 15, 2018 12:17
[2018-08-15] MEDS ORDERED: PILL CRUSHER/CUTTER 1 EACH XX PRN (12:45)
--- NOTE | 2018-08-15 13:17 | ECGEPIP ---
Stationary ECG Study [facility] - ED Test Date: 2018-08-15 Pat Name: CAROL ALVARENGA Department: Room: - Gender: F Event Set Up [facility] 1940 Requested By: Fiona Prather Order Number: [id number] Reading MD: Fiona Prather Measurements Intervals Pinnacle Rate: 77 P: WA: 0 QRS: -15 QRSD: 92 T: 0 QT: 392 QTc: 446 Interpretive Statements ATRIAL FIBRILLATION NSTTW ABNORMALITY DELAYED R PROGRESSION PRIOR INFERIOR INFARCT SIMILAR 07/29/18 ABNORMAL RHYTHM ECG Electronically Signed On 08-15-2018 13:17:14 EST by Fiona Prather
[2018-08-15] MEDS ORDERED: LORazepam 2 MG/ML VIAL (J2060) IV STA (14:01)
[2018-08-15 16:00] VITALS: BP 158/82
--- NOTE | 2018-08-15 16:13 | REP ---
Clinical: Expressive aphasia. Technique: Standard noncontrast MRI sequencing of the brain. Findings: Age-related atrophy with periventricular leukomalacia and microvascular ischemic changes are appreciated as defined by increased T2 signal intensity in the periventricular distribution along with small T2 signal intensity foci throughout the bilateral white matter tracts. No obvious acute infarction. No acute intracranial hemorrhage. No obvious mass or mass effect. No extra-axial collection. Mild sinusitis noted. Impression: Diffuse age related atrophy and microvascular ischemic changes. No obvious acute infarction. Electronically Signed by Garfield Gutierrez MD 08/15/2018 04:05 P
[2018-08-15] MEDS: predniSONE 10 MG TAB PO SCH (16:37)
[2018-08-15] MEDS: ATORVASTATIN 10 MG TAB PO SCH (20:10)
[2018-08-15] MEDS: MONTELUKAST 10 MG TAB PO SCH (20:11)
[2018-08-15] MEDS: LORATADINE 10 MG TAB PO SCH (20:11)
[2018-08-15] MEDS: OCUVITE 1 TAB PO SCH (20:11)
[2018-08-15] MEDS: LATANOPROST 0.005% OPHTH SOLN 2.5 ML OU SCH (20:12)
[2018-08-15 22:00] VITALS: BP 165/78
[2018-08-16] MEDS ORDERED: LORazepam 0.5 MG TAB PO PRN (00:30)
[2018-08-16 05:53] LABS: HEMATOCRIT 31.4 % (36.0-47.0); HEMOGLOBIN 10.1 g/dl (12.0-15.5); MEAN CORPUSCULAR HEMOGLOBIN 30.9 pg (27.0-33.0); MEAN CORPUSCULAR HGB CONC 32.2 g/dl (32.0-36.5); PLATELET COUNT, AUTOMATED 220 10^3/uL (150-450); RED BLOOD COUNT 3.27 10^6/uL (4.00-5.40); WHITE BLOOD COUNT 5.7 10^3/uL (4.0-10.0)
[2018-08-16 06:00] VITALS: BP 156/65
[2018-08-16 06:01] LABS: BLOOD UREA NITROGEN 9 MG/DL (7-18); CALCIUM LEVEL 8.8 MG/DL (8.8-10.2); CARBON DIOXIDE LEVEL 34 MEQ/L (21-32); CHLORIDE LEVEL 103 MEQ/L (98-107); GLOMERULAR FILTRATION RATE > 60.0 (>32); GLUCOSE, FASTING 104 MG/DL (70-100); POTASSIUM SERUM 3.7 MEQ/L (3.5-5.1); SODIUM LEVEL 141 MEQ/L (136-145)
[2018-08-16] MEDS: POTASSIUM CHLORIDE 10 MEQ SR TABLET PO SCH (08:50)
[2018-08-16] MEDS: PANTOPRAZOLE 40MG TAB (PROTONIX) PO SCH (08:50)
[2018-08-16] MEDS: LACOSAMIDE 50 MG TAB (VIMPAT) PO SCH ×2 (08:50→20:11)
[2018-08-16] MEDS: OCUVITE 1 TAB PO SCH ×2 (08:50→20:12)
[2018-08-16] MEDS: levETIRAcetam 250MG TABLET (KEPPRA) PO SCH ×2 (08:50→20:12)
[2018-08-16] MEDS: IRBESARTAN 150 MG TAB PO SCH (08:51)
[2018-08-16] MEDS: DOCUSATE SODIUM 100 MG CAP PO SCH ×2 (08:51→20:12)
--- NOTE | 2018-08-16 13:43 | IPNPDOC ---
Date Seen The patient was seen on 08/16/18. Progress Note SUBJECTIVE: Patient continues to complain of some cough and shortness of breath and generalized body aches which she is experiencing in the days prior to her fall. She denies any further loss of consciousness followed lightheadedness dizziness weakness paralysis paresthesias changes in bowel or bladder habits Objective: Vital signs: Please see below GENERAL APPEARANCE: Pleasant elderly female lying flat in bed she does not appear to be in any acute distress. HEENT: Today do not appreciate any facial droop facial droop otherwise cranial nerves II through XII are grossly intact. CARDIOVASCULAR: S1-S2 irregularly irregular she is not tachycardic. LUNGS: Clear To auscultation bilaterally. ABDOMEN: Bowel sounds are present The abdomen is soft. EXTREMITIES: no Clubbing cyanosis or edema. NEUROLOGICAL: No Focal deficits. 5 out of 5 strength throughout LABORATORY DATA: See below. IMAGING: CT head: Age-related atrophy and microvascular ischemic changes no acute intracranial hemorrhage mild ethmoid sinus disease Cervical spine CT: Chronic stable degenerative changes no evidence of cervical spine trauma or injury stable advanced multilevel degenerative changes primarily at C5-C6 chronic canal stenosis Humerus x-ray: No acute fracture dislocation Wrist x-ray: Osteopenia and degenerative changes no obvious acute fracture dislocation Chest x-ray: No acute cardio pulmonary process appreciated MICROBIOLOGY: Please see below. ASSESSMENT: This is an 78-year-old female status post an unwitnessed fall. 1. Fall: Possibly syncope the etiology is unclear she did have some expressive aphasia following it may been post ictal event that she may have had a seizure despite her antiepileptic medication. It is also certainly possible that the patient suffered a TIA and awoke with symptoms which are now resolving. I have spoken with the neurology service for consultation we'll continue her antiepileptics monitor on telemetry. She is certainly at risk for TIAs and strokes not being anticoagulated with her recent subdural unfortunately I see little that we can do regarding this. It is also possible that given her recent URI lowered her seizure threshold, I was PTOT evaluate her. 2. Chronic atrial fibrillation: Continue with verapamil and digoxin no anticoagulation as outlined above 3. Seizure disorder: Secondary to subdural hematoma she is not on any anticoagulation she is continued on Vimpat and Keppra and neurology consult pending 4. Obstructive lung disease: Asthma however she certainly at risk for COPD given her significant tobacco exposure history continue with albuterol nebulizers may be slightly worse in the setting of an acute viral URI secondary to RSV I will start her on prednisone 40 mg by mouth daily continue with supplemental O2 as needed I suspect this will take several days to resolve 5. Gastroesophageal reflux disease: Continue with pantoprazole 6. Chronic constipation: Continue with home bowel regimen 7. Hypertension: Continue with irbesartan 8. Dyslipidemia: Continue with atorvastatin 9. Allergic rhinitis: Continue with montelukast and loratadine 10. DVT prophylaxis: Sequentials and teds no pharmacological agents 11. Glaucoma: Okay to continue home eye drops Disposition: Pending clinical improvement PTOT and neurology evaluation VS, I&O, 24H, Fishbone Vital Signs/I&O Vital Signs Date Time Temp Pulse Resp B/P (MAP) Pulse Ox O2 Delivery O2 Flow Rate FiO2 08/16/18 11:06 2.0 08/16/18 08:51 156/65 08/16/18 06:00 97.9 70 18 95 Nasal Cannula I&O- Last 24 Hours up to 6 AM 08/16/18 06:00 Intake Total 450 ml Output Total 50 ml Balance 400 ml Laboratory Data 24H LABS Laboratory Tests 2 08/16/18 05:14: Nucleated Red Blood Cells % (auto) 0.0, Anion Gap 4L, Glomerular Filtration Rate > 60.0, Blood Urea Nitrogen 9, Creatinine 0.40L, Sodium Level 141, Potassium Level 3.7, Chloride Level 103, Carbon Dioxide Level 34H, Calcium Level 8.8 CBC/BMP Laboratory Tests 08/16/18 05:14 Red Blood Count 3.27 L, Mean Corpuscular Volume 96.0, Mean Corpuscular Hemoglobin 30.9, Mean Corpuscular Hemoglobin Concent 32.2, Red Cell Distribution Width 13.0, Calcium Level 8.8 Microbiology Microbiology 08/15/18 Respiratory Virus Panel (PCR) ([facility]) - Final, Complete Respiratory Syncytial Virus CHRISTINE MARCUS MD Aug 16, 2018 13:43
[2018-08-16] MEDS: predniSONE 10 MG TAB PO SCH (14:00)
[2018-08-16] MEDS: predniSONE 20 MG TAB PO SCH (16:34)
[2018-08-16] MEDS: MONTELUKAST 10 MG TAB PO SCH (20:12)
[2018-08-16] MEDS: LORATADINE 10 MG TAB PO SCH (20:13)
[2018-08-16] MEDS: LATANOPROST 0.005% OPHTH SOLN 2.5 ML OU SCH (20:13)
[2018-08-16] MEDS: ATORVASTATIN 10 MG TAB PO SCH (20:13)
[2018-08-16 22:00] VITALS: BP 125/80
[2018-08-17 06:00] VITALS: BP 159/80
[2018-08-17 06:41] LABS: HEMATOCRIT 34.9 % (36.0-47.0); HEMOGLOBIN 11.2 g/dl (12.0-15.5); MEAN CORPUSCULAR HEMOGLOBIN 30.7 pg (27.0-33.0); MEAN CORPUSCULAR HGB CONC 32.1 g/dl (32.0-36.5); MEAN CORPUSCULAR VOLUME 95.6 fl (80.0-96.0); PLATELET COUNT, AUTOMATED 265 10^3/uL (150-450); RED BLOOD COUNT 3.65 10^6/uL (4.00-5.40); WHITE BLOOD COUNT 5.2 10^3/uL (4.0-10.0)
[2018-08-17 07:07] LABS: BLOOD UREA NITROGEN 16 MG/DL (7-18); CARBON DIOXIDE LEVEL 30 MEQ/L (21-32); CHLORIDE LEVEL 104 MEQ/L (98-107); CREATININE FOR GFR 0.44 MG/DL (0.55-1.30); GLOMERULAR FILTRATION RATE > 60.0 (>32); GLUCOSE, FASTING 139 MG/DL (70-100); POTASSIUM SERUM 3.7 MEQ/L (3.5-5.1); SODIUM LEVEL 141 MEQ/L (136-145)
[2018-08-17] MEDS: levETIRAcetam 250MG TABLET (KEPPRA) PO SCH ×2 (08:48→20:15)
[2018-08-17] MEDS: POTASSIUM CHLORIDE 10 MEQ SR TABLET PO SCH (08:48)
[2018-08-17] MEDS: PANTOPRAZOLE 40MG TAB (PROTONIX) PO SCH (08:49)
[2018-08-17] MEDS: DIGOXIN 0.0625MG PER 1/2TABLET PO SCH (08:49)
[2018-08-17] MEDS: OCUVITE 1 TAB PO SCH ×2 (08:49→20:16)
[2018-08-17] MEDS: IRBESARTAN 150 MG TAB PO SCH (08:49)
[2018-08-17] MEDS: DOCUSATE SODIUM 100 MG CAP PO SCH ×2 (08:49→20:16)
[2018-08-17] MEDS: LACOSAMIDE 50 MG TAB (VIMPAT) PO SCH ×2 (08:49→20:16)
[2018-08-17] MEDS: predniSONE 20 MG TAB PO SCH (08:50)
--- NOTE | 2018-08-17 15:44 | IPNPDOC ---
Date Seen The patient was seen on 08/17/18. Progress Note SUBJECTIVE: Patient tells me that she is feeling better today she has some mild body aches her breathing is improved she denies fevers chills chest pain or shortness of breath Objective: Vital signs: Please see below GENERAL APPEARANCE: Pleasant elderly female sitting in a chair she does not appear to be in any acute distress. HEENT: Today do not appreciate any facial droop facial droop otherwise cranial nerves II through XII are grossly intact. CARDIOVASCULAR: S1-S2 irregularly irregular she is not tachycardic. LUNGS: Clear To auscultation bilaterally. ABDOMEN: Bowel sounds are present The abdomen is soft. EXTREMITIES: no Clubbing cyanosis or edema. NEUROLOGICAL: No Focal deficits. 5 out of 5 strength throughout LABORATORY DATA: See below. IMAGING: CT head: Age-related atrophy and microvascular ischemic changes no acute intracranial hemorrhage mild ethmoid sinus disease Cervical spine CT: Chronic stable degenerative changes no evidence of cervical spine trauma or injury stable advanced multilevel degenerative changes primarily at C5-C6 chronic canal stenosis Humerus x-ray: No acute fracture dislocation Wrist x-ray: Osteopenia and degenerative changes no obvious acute fracture dislocation Chest x-ray: No acute cardio pulmonary process appreciated MICROBIOLOGY: Please see below. ASSESSMENT: This is an 78-year-old female status post an unwitnessed fall. 1. Fall: Possibly syncope the etiology is unclear, neurology help is greatly appreciated the suspicion is that this was a TIA. She has a document allergy to aspirin but upon further questioning and review of the record it appears that she had some stomach irritation associated with no zenobia allergy. As such we will begin her on aspirin and continue her statin as per neurology's recommendations. Her symptoms appear to have resolved we will have her work with PT OT we await results of echocardiogram. The likely etiology for her TIA would be A. fib unfortunately she is unable to tolerate higher levels of anticoagulation given her subdural bleeding at this time I will start her on the aspirin 325 in the long-term I suspect she would benefit from going back on Coumadin as it appears her subdurals in the past related to trauma otherwise she tolerated Coumadin for many years I did suggest that she discuss this further with her primary care provider and the risks of being on antiplatelet agent versus off anticoagulation with discussed at length with the patient. 2. Chronic atrial fibrillation: Continue with verapamil and digoxin no anticoagulation at this time we are starting aspirin as outlined above. But as outlined above think she would benefit from going back on Coumadin she tolerated for many years and her subdural hematoma was associated only with specific trauma 3. Seizure disorder: Secondary to subdural hematoma she is not on any anticoagulation she is continued on Vimpat and Keppra and neurology consult appreciated 4. Obstructive lung disease: Asthma however she certainly at risk for COPD given her significant tobacco exposure history continue with albuterol nebulizers may be slightly worse in the setting of an acute viral URI secondary to RSV I have started her on prednisone 40 mg by mouth daily continue with supplemental O2 as needed I suspect this will take several days to resolve she is improving at this time we are weaning her O2 5. Gastroesophageal reflux disease: Continue with pantoprazole 6. Chronic constipation: Continue with home bowel regimen 7. Hypertension: Continue with irbesartan 8. Dyslipidemia: Continue with atorvastatin 9. Allergic rhinitis: Continue with montelukast and loratadine 10. DVT prophylaxis: Sequentials and teds no pharmacological agents 11. Glaucoma: Okay to continue home eye drops Disposition: Pending clinical improvement PTOT and echocardiogram possibly back to send keep home as early as tomorrow or the day after VS, I&O, 24H, Fishbone Vital Signs/I&O Vital Signs Date Time Temp Pulse Resp B/P (MAP) Pulse Ox O2 Delivery O2 Flow Rate FiO2 08/17/18 09:00 1.0 08/17/18 08:49 167/90 08/17/18 08:49 79 08/17/18 06:00 97.8 18 96 Nasal Cannula I&O- Last 24 Hours up to 6 AM 08/17/18 06:00 Intake Total 1280 ml Output Total 400 ml Balance 880 ml Laboratory Data 24H LABS Laboratory Tests 2 08/17/18 06:21: Nucleated Red Blood Cells % (auto) 0.0, Anion Gap 7L, Glomerular Filtration Rate > 60.0, Blood Urea Nitrogen 16#, Creatinine 0.44L, Sodium Level 141, Potassium Level 3.7, Chloride Level 104, Carbon Dioxide Level 30, Calcium Level 9.0 CBC/BMP Laboratory Tests 08/17/18 06:21 Red Blood Count 3.65 L, Mean Corpuscular Volume 95.6, Mean Corpuscular Hemoglobin 30.7, Mean Corpuscular Hemoglobin Concent 32.1, Red Cell Distribution Width 12.9, Calcium Level 9.0 Microbiology Microbiology 08/15/18 Respiratory Virus Panel (PCR) ([facility]) - Final, Complete Respiratory Syncytial Virus CHRISTINE MARCUS MD Aug 17, 2018 15:44
[2018-08-17 16:15] VITALS: BP 125/70
[2018-08-17] MEDS: ASPIRIN 325 MG TAB PO SCH (17:04)
[2018-08-17] MEDS: MONTELUKAST 10 MG TAB PO SCH (20:16)
[2018-08-17] MEDS: ATORVASTATIN 10 MG TAB PO SCH (20:17)
[2018-08-17] MEDS: LORATADINE 10 MG TAB PO SCH (20:17)
[2018-08-17] MEDS: LATANOPROST 0.005% OPHTH SOLN 2.5 ML OU SCH (20:20)
[2018-08-17 22:00] VITALS: BP 140/79
[2018-08-18 06:00] VITALS: BP 144/83
[2018-08-18 06:20] LABS: HEMATOCRIT 30.9 % (36.0-47.0); HEMOGLOBIN 9.8 g/dl (12.0-15.5); MEAN CORPUSCULAR HEMOGLOBIN 30.2 pg (27.0-33.0); MEAN CORPUSCULAR HGB CONC 31.7 g/dl (32.0-36.5); MEAN CORPUSCULAR VOLUME 95.4 fl (80.0-96.0); PLATELET COUNT, AUTOMATED 251 10^3/uL (150-450); RED BLOOD COUNT 3.24 10^6/uL (4.00-5.40); WHITE BLOOD COUNT 8.1 10^3/uL (4.0-10.0)
[2018-08-18 06:38] LABS: BLOOD UREA NITROGEN 15 MG/DL (7-18); CALCIUM LEVEL 8.7 MG/DL (8.8-10.2); CARBON DIOXIDE LEVEL 33 MEQ/L (21-32); CHLORIDE LEVEL 104 MEQ/L (98-107); CREATININE FOR GFR 0.45 MG/DL (0.55-1.30); GLOMERULAR FILTRATION RATE > 60.0 (>32); GLUCOSE, FASTING 93 MG/DL (70-100); POTASSIUM SERUM 3.4 MEQ/L (3.5-5.1); SODIUM LEVEL 142 MEQ/L (136-145)
[2018-08-18] MEDS: OCUVITE 1 TAB PO SCH ×2 (08:06→19:57)
[2018-08-18] MEDS: predniSONE 20 MG TAB PO SCH (08:07)
[2018-08-18] MEDS: LACOSAMIDE 50 MG TAB (VIMPAT) PO SCH ×2 (08:07→19:56)
[2018-08-18] MEDS: DOCUSATE SODIUM 100 MG CAP PO SCH ×2 (08:07→19:56)
[2018-08-18] MEDS: POTASSIUM CHLORIDE 10 MEQ SR TABLET PO SCH (08:07)
[2018-08-18] MEDS: levETIRAcetam 250MG TABLET (KEPPRA) PO SCH ×2 (08:07→19:57)
[2018-08-18] MEDS: ASPIRIN 325 MG TAB PO SCH (08:07)
[2018-08-18] MEDS: PANTOPRAZOLE 40MG TAB (PROTONIX) PO SCH (08:07)
[2018-08-18] MEDS: IRBESARTAN 150 MG TAB PO SCH (08:08)
--- NOTE | 2018-08-18 10:24 | IPNPDOC ---
Text Note Date of Service The patient was seen on 08/18/18. NOTE Subjective: Patient was seen and examined at the bedside. Currently patient has no new complaints. She denies chest pain, shortness of breath, palpitations. Denies nausea, vomiting, abdominal pain, constipation or diarrhea. Objective: Vitals (See below) General: Lying in bed, no acute distress, comfortable, AAOx3 HEENT: NC, AT CVS: RRR, +S1S2 Lungs: Fair air entry b/l, -w/r/r Abdomen: Soft, ND, NT Extremities: - Edema, - Calf tenderness Assessment and plan: Fall - possibly 2/2 syncope; possibly 2/2 TIA (possibly 2/2 A. fib), less likely 22/ seizure - Clinically has had resolution of her facial weakness / facial droop - ECHO pending - CT head 07/26: Age-related atrophy and microvascular ischemic changes no acute intracranial hemorrhage mild ethmoid sinus disease - CT cervical spine 07/26: Chronic stable degenerative changes no evidence of cervical spine trauma or injury stable advanced multilevel degenerative changes primarily at C5-C6 chronic canal stenosis - MRI 08/15: Diffuse age related atrophy and microvascular ischemic changes. No obvious acute infarction. - c/w PT / OT; awaiting clearance - c/w ASA and Atorvastatin - Not a candidate for anticoagulation 2/2 recent intracranial bleed 2/2 Trauma Chronic A. fib - c/w rate / rhythm control with Diltiazem / Digoxin - Will have outpatient f/u with PCP for re-evaluation fo anticoagulation; c/w ASA for now Seizure disorder - likely 2/2 subdural hematoma - c/w Vimpat and Keppra Hx of Subdural hematoma - likely 2/2 Trauma COPD - Has required supplemental oxygen as an inpatient; has been titrate off to RA - Respiratory panel: RSV - CXR 08/15: No acute cardiopulmonary process appreciated. - c/w Prednisone; will taper down dose Chronic constipation - c/w Bowel regimen HTN - Atenolol DLP - c/w Atorvastatin Allergic rhinitis - c/w Montelukast and Loratadine Glaucoma - Allowed to use home meds GERD - c/w Protonix DVT prophylaxis - c/w SCDs VS,Fishbone, I+O VS, Fishbone, I+O Laboratory Tests 08/18/18 05:58 Red Blood Count 3.24 L, Mean Corpuscular Volume 95.4, Mean Corpuscular Hemoglobin 30.2, Mean Corpuscular Hemoglobin Concent 31.7 L, Red Cell Distribution Width 13.1, Calcium Level 8.7 L Vital Signs Date Time Temp Pulse Resp B/P (MAP) Pulse Ox O2 Delivery O2 Flow Rate FiO2 08/18/18 08:08 144/83 08/18/18 06:00 98.4 71 20 94 Room Air 08/17/18 22:00 1.0 I&O- Last 24 Hours up to 6 AM 08/18/18 06:00 Intake Total 1440 ml Output Total 350 ml Balance 1090 ml VICKY JARAMILLO MD Aug 18, 2018 10:24
--- NOTE | 2018-08-18 10:30 | CR ---
DATE OF CONSULTATION: 08/17/2018 REASON FOR CONSULTATION: Transient change in speech, confusion. The patient is an 78-year-old female who was brought to [facility] after being found on the ground and outside of her room. The patient was having difficulty expressing words while she was trying to call for help. The patient was found on the ground 5 to 10 minutes after this started. The patient herself is a poor historian. She cannot recall whether she had any weakness. The patient states the symptoms have self resolved. She has history of chronic atrial fibrillation and is on aspirin. She was on Coumadin, but developed subdural hematoma recently in the past few months. She was taken off of her Coumadin. At the present time, the patient is back to her baseline state. She is still a little bit confused and agrees that she has some difficulty with her cognition at baseline. The patient is oriented to person, place and her name. REVIEW OF SYSTEMS: 14-point review of systems obtained and is negative except as per history of present illness (HPI). PAST MEDICAL HISTORY: Chronic atrial fibrillation, subdural hematoma while on Coumadin, associated seizure disorder, hypertension, asthma, obstructive lung disease, glaucoma, allergic rhinitis. PAST SURGICAL HISTORY: Tubal ligation, dilation and curettage (D and C). SOCIAL HISTORY: The patient denies use of any tobacco, illicit drugs or alcohol. The patient states she was a former smoker. FAMILY HISTORY: Noncontributory. ALLERGIES: - ASPIRIN - CODEINE - PENICILLIN HOME MEDICATIONS: - atorvastatin 10 mg - Azopt 1% - digoxin 62.5 mcg two days a week - docusate - irbesartan 300 mg - Lacosamide 100 mg by mouth twice a day - Xalatan 0.005% solution q.h.s. - Levetiracetam 750 mg by mouth twice a day - Lidoderm 10 mg - Montelukast 10 mg - multivitamin - pantoprazole 40 mg - potassium chloride 10 mEq - prednisone 10 mg - timolol - verapamil 100 mg q.h.s. PHYSICAL EXAMINATION: Blood pressure 125/80, pulse rate 78, respiratory rate 18, temperature is 97.9 degrees Fahrenheit, oxygenation saturation 95% on 2 liters nasal cannula. The patient is awake, alert, oriented to person, place and time. Speech, language comprehension, and repetition are intact. Pupils are 2.5 mm, round and reactive to light. Extraocular movements are intact in all directions without nystagmus. Sensation V1, V2, V3 appears to be intact to light touch. No facial asymmetry to activation. Palate elevates symmetrically. Tongue is midline. No weakness of sternocleidomastoids bilaterally. Hearing is subjectively equal to finger rub. There is no pronator drift. Strength is 5/5 including bilateral deltoids, biceps, triceps, handgrip, iliopsoas, quadriceps, anterior tibialis. Deep tendon reflexes are 2s throughout, reduced at the Achilles. Sensory is intact to light touch in all four extremities. Coordination: Normal [id number] without any signs of gross ataxia or dysmetria. Gait deferred. ASSESSMENT: 78-year-old female with transient difficulty with speech, with history of atrial fibrillation currently on aspirin, history of subdural hematoma with seizure disorder. Most likely the patient suffered from transient ischemic attack (TIA) given symptoms of aphasia. No seizure activity was noted. PLAN: 1. Includes aspirin 81 mg daily. Given recent history of subdural hematoma would avoid anticoagulation as the patient bled into a cranial bleed on anticoagulation. 2. Continue telemetry monitoring and echocardiogram. 3. Physical therapy (PT)/occupational therapy (OT). 4. Angiogram head and neck. 5. Obtain electroencephalogram (EEG) to rule out seizures.
[2018-08-18 14:00] VITALS: BP 145/75
[2018-08-18] MEDS: ATORVASTATIN 10 MG TAB PO SCH (19:56)
[2018-08-18] MEDS: LATANOPROST 0.005% OPHTH SOLN 2.5 ML OU SCH (19:57)
[2018-08-18] MEDS: MONTELUKAST 10 MG TAB PO SCH (19:57)
[2018-08-18] MEDS: LORATADINE 10 MG TAB PO SCH (19:57)
[2018-08-18 22:00] VITALS: BP 144/82
[2018-08-19 05:49] LABS: HEMATOCRIT 31.2 % (36.0-47.0); HEMOGLOBIN 10.1 g/dl (12.0-15.5); MEAN CORPUSCULAR HEMOGLOBIN 30.5 pg (27.0-33.0); MEAN CORPUSCULAR HGB CONC 32.4 g/dl (32.0-36.5); MEAN CORPUSCULAR VOLUME 94.3 fl (80.0-96.0); PLATELET COUNT, AUTOMATED 269 10^3/uL (150-450); RED BLOOD COUNT 3.31 10^6/uL (4.00-5.40); WHITE BLOOD COUNT 9.4 10^3/uL (4.0-10.0)
[2018-08-19 06:00] VITALS: BP 160/80
[2018-08-19 06:20] LABS: BLOOD UREA NITROGEN 17 MG/DL (7-18); CALCIUM LEVEL 8.6 MG/DL (8.8-10.2); CARBON DIOXIDE LEVEL 30 MEQ/L (21-32); CHLORIDE LEVEL 105 MEQ/L (98-107); CREATININE FOR GFR 0.52 MG/DL (0.55-1.30); GLOMERULAR FILTRATION RATE > 60.0 (>32); GLUCOSE, FASTING 93 MG/DL (70-100); POTASSIUM SERUM 3.5 MEQ/L (3.5-5.1); SODIUM LEVEL 141 MEQ/L (136-145)
[2018-08-19] MEDS: POTASSIUM CHLORIDE 10 MEQ SR TABLET PO SCH (08:32)
[2018-08-19] MEDS: ASPIRIN 325 MG TAB PO SCH (08:33)
[2018-08-19] MEDS: levETIRAcetam 250MG TABLET (KEPPRA) PO SCH (08:33)
[2018-08-19] MEDS: DIGOXIN 0.0625MG PER 1/2TABLET PO SCH (08:33)
[2018-08-19] MEDS: PANTOPRAZOLE 40MG TAB (PROTONIX) PO SCH (08:33)
[2018-08-19 08:34] VITALS: BP 160/80
[2018-08-19] MEDS: IRBESARTAN 150 MG TAB PO SCH (08:34)
[2018-08-19] MEDS: DOCUSATE SODIUM 100 MG CAP PO SCH (08:34)
[2018-08-19] MEDS: OCUVITE 1 TAB PO SCH (08:34)
[2018-08-19] MEDS: LACOSAMIDE 50 MG TAB (VIMPAT) PO SCH (08:35)
[2018-08-19] MEDS ORDERED: predniSONE 10 MG TAB PO SCH (09:00)
[2018-08-19] MEDS ORDERED: PRED10TA2 PO (10:42)
--- NOTE | 2018-08-19 12:56 | IPNPDOC ---
Text Note Date of Service The patient was seen on 08/19/18. NOTE Subjective: Patient is a 78-year-old female with a PMHx of Chronic HTN, A. fib, Subdural hematoma, Seizure disorder (2/2 SDH), Asthma / COPD, Glaucoma and Allergic rhinitis who presented to the ER with complaints of facial droop after she experienced a fall at [facility]. Patient was admitted to the hospitalist service for further evaluation and treatment for suspected TIA. Patient was seen and examined at the bedside. Currently patient has no new complaints. She denies chest pain, shortness of breath, palpitations. Denies nausea, vomiting, abdominal pain, constipation or diarrhea. Objective: Vitals (See below) General: Lying in bed, no acute distress, comfortable, AAOx3 HEENT: NC, AT CVS: RRR, +S1S2 Lungs: Fair air entry b/l, I'll no evidence of wheezing, rhonchi, rales Abdomen: Soft, nondistended and nontender Extremities: - Edema, - Calf tenderness Assessment and plan: Fall - possibly 2/2 syncope; possibly 2/2 TIA (possibly 2/2 A. fib), less likely 2/2 seizure - Clinically has had resolution of her facial weakness / facial droop - CT head 07/26: Age-related atrophy and microvascular ischemic changes no acute intracranial hemorrhage mild ethmoid sinus disease - CT cervical spine 07/26: Chronic stable degenerative changes no evidence of cervical spine trauma or injury stable advanced multilevel degenerative changes primarily at C5-C6 chronic canal stenosis - MRI 08/15: Diffuse age related atrophy and microvascular ischemic changes. No obvious acute infarction. - c/w ASA and Atorvastatin - Not a candidate for anticoagulation 2/2 recent intracranial bleed 2/2 Trauma - ECHO pending; will transfer to [facility] for acute rehab - c/w PT / OT Chronic A. fib - c/w rate / rhythm control with Diltiazem / Digoxin - Will have outpatient f/u with PCP for re-evaluation fo anticoagulation; c/w ASA for now Seizure disorder - likely 2/2 subdural hematoma - c/w Vimpat and Keppra Hx of Subdural hematoma - likely 2/2 Trauma COPD - Has required supplemental oxygen as an inpatient; has been titrate off to RA - Respiratory panel: RSV - CXR 08/15: No acute cardiopulmonary process appreciated. - c/w Prednisone; will taper down dose Chronic constipation - c/w Bowel regimen HTN - Atenolol DLP - c/w Atorvastatin Allergic rhinitis - c/w Montelukast and Loratadine Glaucoma - Allowed to use home meds GERD - c/w Protonix DVT prophylaxis - c/w SCDs Disposition: - Awaiting ECHO VS,Fishbone, I+O VS, Fishbone, I+O Laboratory Tests 08/19/18 05:35 Red Blood Count 3.31 L, Mean Corpuscular Volume 94.3, Mean Corpuscular Hemoglobin 30.5, Mean Corpuscular Hemoglobin Concent 32.4, Red Cell Distribution Width 13.1, Calcium Level 8.6 L Vital Signs Date Time Temp Pulse Resp B/P (MAP) Pulse Ox O2 Delivery O2 Flow Rate FiO2 08/19/18 08:34 160/80 08/19/18 08:33 72 08/19/18 06:00 98.2 17 95 Room Air 08/17/18 22:00 1.0 I&O- Last 24 Hours up to 6 AM 08/19/18 06:00 Intake Total 960 ml Output Total 0 ml Balance 960 ml VICKY JARAMILLO MD Aug 19, 2018 12:56
[2018-08-19 14:00] VITALS: BP 151/76
--- NOTE | 2018-08-19 15:25 | DS.PDOC ---
Discharge Summary General Date of Admission Aug 15, 2018 at 11:45 Date of Discharge 08/19/2018 Discharge Summary PROCEDURES PERFORMED DURING STAY: [None]. ADMITTING DIAGNOSES / DISCHARGE DIAGNOSES: Fall - possibly 2/2 syncope; possibly 2/2 TIA (possibly 2/2 A. fib), less likely 22/ seizure Chronic A. fib Seizure disorder - likely 2/2 subdural hematoma Hx of Subdural hematoma - likely 2/2 Trauma COPD Chronic constipation HTN DLP Allergic rhinitis Glaucoma GERD DVT prophylaxis COMPLICATIONS/CHIEF COMPLAINT: Fall at [facility] HISTORY OF PRESENT ILLNESS: Patient is a 78-year-old female with a PMHx of Chronic HTN, A. fib, Subdural hematoma, Seizure disorder (2/2 SDH), Asthma / COPD, Glaucoma and Allergic rhinitis who presented to the ER with complaints of facial droop after she experienced a fall at [facility]. Patient was admitted to the hospitalist service for further evaluation and treatment for suspected TIA. HOSPITAL COURSE: Fall - possibly 2/2 syncope; possibly 2/2 TIA (possibly 2/2 A. fib), less likely 22/ seizure - Clinically has had resolution of her facial weakness / facial droop - ECHO without any significant abnormalities - CT head 07/26: Age-related atrophy and microvascular ischemic changes no acute intracranial hemorrhage mild ethmoid sinus disease - CT cervical spine 07/26: Chronic stable degenerative changes no evidence of cervical spine trauma or injury stable advanced multilevel degenerative changes primarily at C5-C6 chronic canal stenosis - MRI 08/15: Diffuse age related atrophy and microvascular ischemic changes. No obvious acute infarction. - c/w PT / OT; awaiting clearance - c/w ASA and Atorvastatin - Not a candidate for anticoagulation 2/2 recent intracranial bleed 2/2 Trauma Chronic A. fib - c/w rate / rhythm control with Diltiazem / Digoxin - Will have outpatient f/u with PCP for re-evaluation fo anticoagulation; c/w ASA for now Seizure disorder - likely 2/2 subdural hematoma - c/w Vimpat and Keppra Hx of Subdural hematoma - likely 2/2 Trauma COPD - Has required supplemental oxygen as an inpatient; has been titrate off to RA - Respiratory panel: RSV - CXR 08/15: No acute cardiopulmonary process appreciated. - c/w Prednisone; will taper down dose Chronic constipation - c/w Bowel regimen HTN - Atenolol DLP - c/w Atorvastatin Allergic rhinitis - c/w Montelukast and Loratadine Glaucoma - Allowed to use home meds GERD - c/w Protonix DVT prophylaxis - c/w SCDs DISCHARGE MEDICATIONS: Please see below. ALLERGIES: Please see below. PHYSICAL EXAMINATION ON DISCHARGE: Vitals (See below) General: Lying in bed, no acute distress, comfortable, AAOx3 HEENT: NC, AT CVS: RRR, +S1S2 Lungs: Fair air entry b/l, I'll no evidence of wheezing, rhonchi, rales Abdomen: Soft, nondistended and nontender Extremities: - Edema, - Calf tenderness LABORATORY DATA: Please see below. ACTIVITY: [As tolerated]. DISCHARGE PLAN: Follow up with Dr. Rehana Sosa and Dr. Currie within 7 days Remain compliant with treatment plan and medications Return to the ER if you experience any problems DISPOSITION: Transfer to [facility] for acute rehabilitation DISCHARGE CONDITION: [Stable]. TIME SPENT ON DISCHARGE: Greater than [35] minutes. Vital Signs/I&Os Vital Signs Date Time Temp Pulse Resp B/P (MAP) Pulse Ox O2 Delivery O2 Flow Rate FiO2 08/19/18 08:34 160/80 08/19/18 08:33 72 08/19/18 06:00 98.2 17 95 Room Air 08/17/18 22:00 1.0 I&O- Last 24 Hours up to 6 AM 08/19/18 06:00 Intake Total 960 ml Output Total 0 ml Balance 960 ml Laboratory Data Labs 24H Laboratory Tests 2 08/19/18 05:35: Nucleated Red Blood Cells % (auto) 0.0, Anion Gap 6L, Glomerular Filtration Rate > 60.0, Blood Urea Nitrogen 17, Creatinine 0.52L, Sodium Level 141, Potassium Level 3.5, Chloride Level 105, Carbon Dioxide Level 30, Calcium Level 8.6L CBC/BMP Laboratory Tests 08/19/18 05:35 Red Blood Count 3.31 L, Mean Corpuscular Volume 94.3, Mean Corpuscular Hemoglobin 30.5, Mean Corpuscular Hemoglobin Concent 32.4, Red Cell Distribution Width 13.1, Calcium Level 8.6 L Microbiology Microbiology 08/15/18 Respiratory Virus Panel (PCR) ([facility]) - Final, Complete Respiratory Syncytial Virus Discharge Medications Scheduled (Ensure Enlive) 1 Liq Liq, 120 ML PO BID, (Reported) Atorvastatin Calcium (Atorvastatin Calcium) 10 Mg Tab, 5 MG PO QHS, (Reported) Brinzolamide (Azopt) 1 % Suyapa, 1 DROP OU BID, (Reported) Digoxin (Lanoxin) 62.5 Mcg Tab, 62.5 MCG PO 3XW, (Reported) MON,WED,FRI Docusate Sodium (Colace) 100 Mg Cap, 100 MG PO BID, (Reported) Irbesartan (Irbesartan) 300 Mg Tab, 300 MG PO DAILY, (Reported) Lacosamide (Vimpat) 100 Mg Tab, 100 MG PO BID, (Reported) Latanoprost (Xalatan) 0.005 % Kallie, 1 DROP OU QHS, (Reported) Levetiracetam (Keppra) 750 Mg Tab, 750 MG PO BID, (Reported) Loratadine (Loratadine) 10 Mg Tab, 10 MG PO QHS, (Reported) Montelukast Sodium (Montelukast Sodium) 10 Mg Tab, 10 MG PO QHS, (Reported) Multivitamin Areds (Preservision Areds) 1 Tab Tab, 1 TAB PO BID, (Reported) Pantoprazole Sodium (Pantoprazole Sodium) 40 Mg Tab, 40 MG PO DAILY, (Reported) Potassium Chloride (Potassium Chloride ER) 10 Meq Tab, 20 MEQ PO DAILY, (Reported) Prednisone (Prednisone) 10 Mg Tab, 10 MG PO TAPER Take 3 tabs daily x 3 days, then 2 tabs daily x 3 days, then 1 tab daily x 3 days and stop Sodium Chloride (Sodium Chloride) 1 Gm Tab, 1 GM PO TID, (Reported) Timolol Maleate (Timolol Maleate) 0.5 % Kallie, 1 DROP OU BID, (Reported) Verapamil Hcl (Verapamil HCl ER) 100 Mg Cap, 100 MG PO QHS, (Reported) Scheduled PRN (Robitussin Peak [place]oug 10-100 mg/5Ml) 1 Liq Liq, 10 ML PO QID PRN for COUGH, (Reported) Acetaminophen (Tylenol) 325 Mg Tab, 650 MG PO Q4H PRN for PAIN, (Reported) Albuterol Sulfate (Proventil Hfa) 108 Mcg/Act Aer, 2 PUFFS INH Q6H PRN for SHORTNESS OF BREATH, (Reported) Albuterol Sulfate (Albuterol Sulfate) 2.5 Mg/0.5 Ml Neb, 2.5 MG INH Q4H PRN for SHORTNESS OF BREATH, (Reported) Bisacodyl (Dulcolax) 10 Mg Sup, 10 MG [place] DAILY PRN for CONSTIPATION, (Reported) Milk Of Magnesia (Milk of Magnesia) 1,200 Mg/15 Ml Suyapa, 30 ML PO DAILY PRN for CONSTIPATION, (Reported) Sodium Phosphate/Biphosphate (Enema 7-19 gm/118Ml) 1 Andrew Andrew, 1 ANDREW [place] DAILY PRN for CONSTIPATION, (Reported) Allergies Coded Allergies: Aspirin (Verified Allergy, Unknown, 11/24/12) Codeine (Verified Allergy, Unknown, 11/24/12) Penicillins (Verified Allergy, Unknown, 11/24/12) Penicillins Cross Reactors (Verified Allergy, Unknown, 11/24/12) VICKY JARAMILLO MD Aug 19, 2018 12:55
--- NOTE | 2018-08-19 15:28 | NUR ---
Pt w/ moderate cognitive-communicative impairment. Will be discharged to LTC. Addendum: 08/19/18 at 1528 by SANDRA CROOK [facility] Amended: Links added.
--- NOTE | 2018-08-19 21:33 | ECHO ---
DATE OF PROCEDURE: 08/19/2018 REFERRING PHYSICIAN: Hafsa Young MD PATIENT LOCATION: Room 4226 REASON FOR ECHOCARDIOGRAM: TIA. 2D MEASUREMENTS: IVS: 1.2 cm LV: 4.2 cm LVPW: 1.2 cm LA: 3.3 cm Aorta: 3.1 cm IVC: 1.76 cm DOPPLER MEASUREMENTS: Peak velocity across the aortic valve: 1.8 m/s Peak velocity across the LVOT: 1.2 m/s Mitral E: 1.0. Maximum tricuspid valve velocity: 3.2 m/s 2D COMMENTS: 1. Normal left ventricular size, wall thickness and normal global left ventricular systolic function. The estimated global left ventricular systolic ejection fraction is 60 to 65%. 2. The left atrium appeared to be mildly enlarged as well as the right atrium. Normal right ventricle. 3. The atrial septum appeared to be normal without evidence of defect or shunt. 4. Normal aortic root. 5. No pericardial effusion. 6. Mildly calcified aortic valve, leaflet excursion appeared to be normal. Mildly calcified mitral annulus with normal anterior mitral valve leaflet motion. Normal tricuspid valve. The pulmonic valve and proximal pulmonary artery branches were not well visualized. 7. The inferior vena cava was normal in size, central venous pressure is most likely normal. DOPPLER: It detects mild mitral regurgitation, moderate tricuspid regurgitation. The calculated pulmonary artery systolic pressure varies between 40 to 50 mmHg. Assessment of the left ventricular diastolic function was limited, patient with underlying atrial fibrillation. IMPRESSION: 1. Normal global left ventricular systolic function. 2. Aortic valve sclerosis with trivial aortic stenosis, but no aortic regurgitation. 3. Mitral annulus calcification with mild mitral regurgitation. Subjectively, the left atrium is mildly enlarged. 4. Moderate tricuspid regurgitation with moderate pulmonary hypertension and dilated right atrium.
--- NOTE | 2018-08-20 10:03 | EEG ---
DATE OF PROCEDURE: 08/17/2018 REFERRING PHYSICIAN: Dr. Alton Kelly DIAGNOSIS: Unwitnessed fall and history of seizure. EEG #: [id number] HISTORY: The patient is an 78-year-old woman who was admitted at [facility] due to an unwitnessed fall and possible syncope. The patient has history of seizure and had expressive aphasia following the event. This electroencephalogram (EEG) was done to rule out epileptic potential. She is currently taking prednisone, digoxin, diltiazem, prednisone, Vimpat, Keppra, Singulair, etc. TECHNICAL DESCRIPTION: This digital EEG was recorded by 21 scalp ear and two EKG electrodes and was reviewed in bipolar and referential montages following reformatting in 10-20 international electrode placement system. INTERPRETATION: The patient was noted to be in awake and drowsy states during this EEG. Resting awake background rhythm consisted of 8.5 Hz alpha activity measuring 15-40 microvolts in amplitude which was symmetric and reactive to eye opening. Anteriorly low voltage and mixed frequency activity was noted. Attenuation of posterior dominant rhythm was seen during transition into drowsiness. Excessive muscle artifact was noted in bilateral frontal and temporal head regions. No sleep was achieved. Hyperventilation could not be performed. Photic stimulation remained unremarkable. Electrocardiogram (EKG) revealed normal sinus rhythm. No focal, lateralizing or epileptiform abnormalities were noted. No relevant clinical activity was noted. CONCLUSION: This EEG in awake and drowsy states is within normal limits.
== END 2018-08-19 15:05 | DRG 69 ==
LOC: M ED 09:05 → EDBD 09:05 → M ED INP 11:45 → M MSPAV 16:19
PROVIDERS: ADMIT Internal Medicine; ATTEND Internal Medicine
DX: G45.9 Transient cerebral ischemic attack, unspecified (principal); R47.01 Aphasia; G40.909 Epilepsy, unspecified, not intractable, without status epilepticus; I10 Essential (primary) hypertension; J45.909 Unspecified asthma, uncomplicated; H40.9 Unspecified glaucoma; I48.2 Chronic atrial fibrillation; K21.9 Gastro-esophageal reflux disease without esophagitis; R55 Syncope and collapse; Z66 Do not resuscitate; K59.09 Other constipation; R29.810 Facial weakness; E78.5 Hyperlipidemia, unspecified; J44.9 Chronic obstructive pulmonary disease, unspecified; Z87.891 Personal history of nicotine dependence; Z79.899 Other long term (current) drug therapy; Z88.0 Allergy status to penicillin; Z88.5 Allergy status to narcotic agent

== ENCOUNTER → 2018-09-07 | Outpatient (REF) ==
[~2018-09-07] MED LIST changes: +ALB2.5NEB INH; -ENEMENE16 PR; +ENEMENE4 PR; +ENSULIQ64 PO; +MILK120011 PO; -MILK12002 PO; +PRED10TA2 PO
[2018-09-07 08:00] LABS: BLOOD UREA NITROGEN 12 MG/DL (7-18); CALCIUM LEVEL 8.5 MG/DL (8.8-10.2); CARBON DIOXIDE LEVEL 30 MEQ/L (21-32); CHLORIDE LEVEL 105 MEQ/L (98-107); CREATININE FOR GFR 0.49 MG/DL (0.55-1.30); GLOMERULAR FILTRATION RATE > 60.0 (>32); GLUCOSE, FASTING 102 MG/DL (70-100); POTASSIUM SERUM 4.2 MEQ/L (3.5-5.1); SODIUM LEVEL 141 MEQ/L (136-145)
== END ==
LOC: SKLAB3 13:34
PROVIDERS: ATTEND Internal Medicine
DX: I62.00 Nontraumatic subdural hemorrhage, unspecified (principal)

== ENCOUNTER → 2018-10-05 | Outpatient (REF) | payer BC, MEDICARE ==
[2018-10-05 09:25] LABS: BLOOD UREA NITROGEN 9 MG/DL (7-18); CALCIUM LEVEL 9.1 MG/DL (8.8-10.2); CARBON DIOXIDE LEVEL 30 MEQ/L (21-32); CHLORIDE LEVEL 106 MEQ/L (98-107); CREATININE FOR GFR 0.59 MG/DL (0.55-1.30); GLOMERULAR FILTRATION RATE > 60.0 (>32); GLUCOSE, FASTING 99 MG/DL (70-100); POTASSIUM SERUM 3.8 MEQ/L (3.5-5.1); SODIUM LEVEL 142 MEQ/L (136-145)
== END ==
LOC: SKLAB3 12:48
PROVIDERS: ATTEND Internal Medicine
DX: I10 Essential (primary) hypertension (principal)

== ENCOUNTER → 2018-10-08 | Outpatient (REF) | payer MEDICARE, BC | LOC: SKLAB3 16:29 | PROVIDERS: ATTEND Internal Medicine | DX: R41.82 Altered mental status, unspecified (principal) ==

== ENCOUNTER → 2018-10-08 | Outpatient (REF) | payer MEDICARE, BC ==
[2018-10-08 16:39] LABS: APPEARANCE, URINE HAZY (CLEAR); BACTERIA, URINE AUTO 1+ (NEGATIVE); BILIRUBIN, URINE AUTO NEGATIVE (NEGATIVE); BLOOD, URINE BLOOD NEGATIVE (NEGATIVE); COLOR, URINE YELLOW (YELLOW); GLUCOSE, URINE (UA) AUTO NEGATIVE (NEGATIVE); KETONE, URINE AUTO NEGATIVE (NEGATIVE); LEUKOCYTE ESTERASE, URINE AUTO 1+ (NEGATIVE); MUCUS, URINE SMALL (NEGATIVE); NITRITE, URINE AUTO POSITIVE (NEGATIVE); PROTEIN, URINE AUTO NEGATIVE (NEGATIVE); RBC, URINE AUTO 1 /HPF (0-3); SPECIFIC GRAVITY URINE AUTO 1.026 (1.002-1.035); SQUAMOUS EPITHELIAL CELL UR AU 3 /HPF (0-6); WBC, URINE AUTO 3 /HPF (0-3)
== END ==
LOC: SKLAB3 16:17
PROVIDERS: ATTEND Internal Medicine
DX: R41.82 Altered mental status, unspecified (principal)

== ENCOUNTER → 2018-10-21 | Outpatient (REF) | payer MEDICARE, BC ==
[2018-10-21 12:36] LABS: APPEARANCE, URINE HAZY (CLEAR); BACTERIA, URINE AUTO NEGATIVE (NEGATIVE); BILIRUBIN, URINE AUTO NEGATIVE (NEGATIVE); BLOOD, URINE BLOOD NEGATIVE (NEGATIVE); COLOR, URINE YELLOW (YELLOW); GLUCOSE, URINE (UA) AUTO NEGATIVE (NEGATIVE); KETONE, URINE AUTO NEGATIVE (NEGATIVE); LEUKOCYTE ESTERASE, URINE AUTO NEGATIVE (NEGATIVE); MUCUS, URINE SMALL (NEGATIVE); NITRITE, URINE AUTO NEGATIVE (NEGATIVE); PROTEIN, URINE AUTO NEGATIVE (NEGATIVE); RBC, URINE AUTO 1 /HPF (0-3); SQUAMOUS EPITHELIAL CELL UR AU 2 /HPF (0-6); UROBILINOGEN, URINE AUTO 0.2 mg/dL (0.0-2.0); WBC, URINE AUTO 1 /HPF (0-3)
== END ==
LOC: SKLAB3 09:57
PROVIDERS: ATTEND Internal Medicine
DX: R39.89 Other symptoms and signs involving the genitourinary system (principal)

== ENCOUNTER → 2018-11-02 | Outpatient (REF) | payer MEDICARE, BC ==
[2018-11-02 08:50] LABS: BLOOD UREA NITROGEN 13 MG/DL (7-18); CALCIUM LEVEL 9.1 MG/DL (8.8-10.2); CARBON DIOXIDE LEVEL 30 MEQ/L (21-32); CHLORIDE LEVEL 105 MEQ/L (98-107); CREATININE FOR GFR 0.62 MG/DL (0.55-1.30); GLOMERULAR FILTRATION RATE > 60.0 (>32); GLUCOSE, FASTING 100 MG/DL (70-100); POTASSIUM SERUM 4.3 MEQ/L (3.5-5.1); SODIUM LEVEL 140 MEQ/L (136-145)
== END ==
LOC: SKLAB3 07:00
PROVIDERS: ATTEND Internal Medicine
DX: I10 Essential (primary) hypertension (principal)

== ENCOUNTER → 2018-11-20 | Outpatient (REF) | payer MEDICARE, BC ==
[~2018-11-20] MED LIST changes: -/ADVA50050; -/VERA40TA; -/WARF2TA; -/WARF5TA; +ADVA1AER2; -ASPI1TAB PO; +ASPI81TA26 PO; +COUM1TAB16; +COUM1TAB17; +VERA1TAB23
== END ==
LOC: SKLAB3 07:00
PROVIDERS: ATTEND Internal Medicine
DX: I10 Essential (primary) hypertension (principal); Z86.69 Personal history of other diseases of the nervous system and sense organs; Z86.73 Personal history of transient ischemic attack (TIA), and cerebral infarction without residual deficits; Z79.899 Other long term (current) drug therapy

== ENCOUNTER → 2019-02-11 | Outpatient (REF) | payer MEDICARE, BC | LOC: M LAB REF 17:36 | PROVIDERS: ATTEND Internal Medicine | DX: G40.89 Other seizures (principal) ==

== ENCOUNTER → 2019-03-15 | Outpatient (REF) | payer MEDICARE, BC ==
[2019-03-15 18:01] LABS: PERCENT SATURATION 23.5 % (13.2-45.0)
== END ==
LOC: M LAB REF 16:58
PROVIDERS: ATTEND Internal Medicine
DX: D64.9 Anemia, unspecified (principal)

== ENCOUNTER 2023-06-28 11:34 | Emergency (ER) | payer MEDICARE, BC ==
[~2023-06-28] VITALS: Ht 152.4 cm; Wt 50.9 kg
[~2023-06-28 11:34] MED LIST changes: -ALBU17IN2 INH; +ALBU6.7H6 INH; +ASPI-569 PO; -ASPI81TAEC PO; -IRBE300T10 PO; +IRBE300T7 PO; -MONT10TA2 PO; +MONT10TA97 PO; +PANT40TA29 PO; -PANT40TA3 PO; +POTA-149 PO; -POTA10TA16 PO; +TIMO0.5S20 OU; -TIMO0.5S29 OU; -VERA100C PO; +VERA100C4 PO
[2023-06-28] MEDS ORDERED: MORPHINE 4 MG/ML 1ML VIAL IV ONE (12:55)
[2023-06-28] MEDS ORDERED: PERC5TAB12 PO (13:40)
[2023-06-28 14:00] VITALS: BP 143/67; TEMP 98.5; O2SAT 95
[2023-06-28] MEDS ORDERED: ONDANSETRON 4MG ORAL DISINTEGRATING TAB PO ONE (14:30)
== END 2023-06-28 14:50 | disposition home or self-care (01) ==
LOC: M ED 11:34
DX: S42.292A Other displaced fracture of upper end of left humerus, initial encounter for closed fracture (principal); Y92.090 Kitchen in other non-institutional residence as the place of occurrence of the external cause; Y93.G1 Activity, food preparation and clean up; Y99.8 Other external cause status; I48.91 Unspecified atrial fibrillation; I10 Essential (primary) hypertension; R56.9 Unspecified convulsions; J45.909 Unspecified asthma, uncomplicated; F41.9 Anxiety disorder, unspecified; H40.9 Unspecified glaucoma; Z88.0 Allergy status to penicillin; Z88.5 Allergy status to narcotic agent; Z88.6 Allergy status to analgesic agent; Z79.899 Other long term (current) drug therapy

== ENCOUNTER → 2023-08-06 | Outpatient (CLI) | payer MEDICARE, BC ==
[~2023-08-06] MED LIST changes: +PERC5TAB12 PO
== END ==
LOC: M SOG 08:03
PROVIDERS: ATTEND Orthopaedic Surgery
DX: S42.202A Unspecified fracture of upper end of left humerus, initial encounter for closed fracture (principal); W18.30XA Fall on same level, unspecified, initial encounter; Y92.009 Unspecified place in unspecified non-institutional (private) residence as the place of occurrence of the external cause

== ENCOUNTER → 2023-09-17 | Outpatient (CLI) | payer MEDICARE, BC ==
[~2023-09-17] MED LIST changes: +IRBE300T25 PO; -IRBE300T7 PO
== END ==
LOC: M SOG 08:10
PROVIDERS: ATTEND Orthopaedic Surgery
DX: S42.212D Unspecified displaced fracture of surgical neck of left humerus, subsequent encounter for fracture with routine healing (principal)

== ENCOUNTER → 2024-03-04 | Outpatient (REF) | payer MEDICARE ==
[2024-03-04 17:22] LABS: RSV AMPLIFICATION NEGATIVE (NEGATIVE)
== END ==
LOC: M LAB REF 16:06
PROVIDERS: ATTEND Internal Medicine
DX: R09.81 Nasal congestion (principal)

== ENCOUNTER 2024-05-26 13:09 | Inpatient (IN) | payer MEDICARE ==
[~2024-05-26] VITALS: Ht 152.4 cm; Wt 50.0 kg
[2024-05-26] MEDS: ONDANSETRON 4MG 2ML VIAL IV ONE (14:10)
[2024-05-26] MEDS: MORPHINE 2 MG/ML 1ML VIAL IV PRN (14:18)
[2024-05-26 14:40] LABS: BASO # 0.1 10^3/uL (0.0-0.2); BASO % 0.4 % (0.0-1.0); EOS # 0.1 10^3/uL (0.0-0.5); EOS % 0.7 % (0.0-3.0); HEMATOCRIT 33.6 % (36.0-47.0); HEMOGLOBIN 10.8 g/dl (12.0-15.5); LYMPH % 7.3 % (24.0-44.0); MEAN CORPUSCULAR HEMOGLOBIN 32.1 pg (27.0-33.0); MEAN CORPUSCULAR HGB CONC 32.1 g/dl (32.0-36.5); MONO # 0.9 10^3/uL (0.0-0.8); MONO % 6.7 % (2.0-8.0); NEUTROPHILS # 11.3 10^3/uL (1.5-8.5); NEUTROPHILS % 84.3 % (36.0-66.0); PLATELET COUNT, AUTOMATED 174 10^3/uL (150-450); RED BLOOD COUNT 3.36 10^6/uL (4.00-5.40); WHITE BLOOD COUNT 13.4 10^3/uL (4.0-10.0)
[2024-05-26 14:56] LABS: INR 1.13; PARTIAL THROMBOPLASTIN TIME 30.5 SECONDS (24.8-34.2); PROTHROMBIN TIME 14.2 SECONDS (12.5-14.5)
[2024-05-26 15:07] LABS: BLOOD UREA NITROGEN 17 MG/DL (9-23); CARBON DIOXIDE LEVEL 28 MMOL/L (20-31); CHLORIDE LEVEL 105 MMOL/L (98-107); CREATININE FOR GFR 0.67 MG/DL (0.55-1.30); GLOMERULAR FILTRATION RATE > 60.0 (>32); GLUCOSE, FASTING 106 MG/DL (74-106); POTASSIUM SERUM 3.6 MMOL/L (3.5-5.1); SODIUM LEVEL 136 MMOL/L (136-145)
[2024-05-26] MEDS ORDERED: HYDR-643 PO (16:46)
[2024-05-26] MEDS ORDERED: ASPI-226 PO (16:46)
[2024-05-26] MEDS ORDERED: BIMA01SOL OU (16:46)
[2024-05-26] MEDS ORDERED: POTA1TAB23 PO (16:46)
[2024-05-26] MEDS ORDERED: POTA-298 PO (16:46)
[2024-05-26] MEDS ORDERED: SYST1SOL OU (16:51)
[2024-05-26] MEDS ORDERED: DORZ2SOL4 OU (16:51)
[2024-05-26] MEDS ORDERED: PANT-23 PO (16:51)
[2024-05-26] MEDS ORDERED: SERT50TA29 PO (16:51)
[2024-05-26] MEDS ORDERED: LEVOTAB10 PO (16:51)
[2024-05-26] MEDS ORDERED: MELA5TAB58 PO (16:51)
[2024-05-26] MEDS ORDERED: VALS1TAB68 PO (16:51)
[2024-05-26] MEDS ORDERED: ALBU8.5H INH (16:53)
[2024-05-26] MEDS ORDERED: HOME MED LIST COMPLETE! XX SCH (16:55)
[2024-05-26] MEDS ORDERED: MAALOX 30 ML SUSP *UDC PO PRN (17:10)
[2024-05-26] MEDS ORDERED: MOM 30ML SUSPENSION UDC PO PRN (17:10)
[2024-05-26] MEDS: LIDOCAINE 5% (LIDODERM) PATCH TD ONE (17:27)
[2024-05-26 21:00] VITALS: TEMP 97.5; O2SAT 99
[2024-05-26] MEDS: DORZOLAMIDE 2% OPHTH SOLN 10 ML BTL OU SCH (22:10)
[2024-05-26] MEDS: VALSARTAN 80 MG TAB (DIOVAN) PO SCH (22:10)
[2024-05-26] MEDS: ATORVASTATIN 10 MG TAB PO SCH (22:10)
[2024-05-26] MEDS: LATANOPROST 0.005% OPHTH SOLN 2.5 ML OU SCH (22:10)
[2024-05-26] MEDS: ACETAMINOPHEN 325 MG TAB PO PRN (22:15)
[2024-05-26 22:34] VITALS: BP 135/67
[2024-05-27] MEDS: MORPHINE 2 MG/ML 1ML VIAL IV PRN (02:36)
[2024-05-27 04:09] VITALS: BP 133/66; TEMP 97.9; O2SAT 93
[2024-05-27 07:22] LABS: HEMATOCRIT 33.4 % (36.0-47.0); HEMOGLOBIN 10.5 g/dl (12.0-15.5); MEAN CORPUSCULAR HGB CONC 31.4 g/dl (32.0-36.5); MEAN CORPUSCULAR VOLUME 101.8 fl (80.0-96.0); PLATELET COUNT, AUTOMATED 182 10^3/uL (150-450); RED BLOOD COUNT 3.28 10^6/uL (4.00-5.40); WHITE BLOOD COUNT 7.1 10^3/uL (4.0-10.0)
[2024-05-27 07:46] LABS: BLOOD UREA NITROGEN 20 MG/DL (9-23); CALCIUM LEVEL 9.1 MG/DL (8.3-10.6); CARBON DIOXIDE LEVEL 30 MMOL/L (20-31); CHLORIDE LEVEL 104 MMOL/L (98-107); CREATININE FOR GFR 0.86 MG/DL (0.55-1.30); FOLATE 13.53 NG/ML (>5.4); GLOMERULAR FILTRATION RATE > 60.0 (>32); GLUCOSE, FASTING 87 MG/DL (74-106); IRON (FE) 80 UG/DL (50-170); MAGNESIUM LEVEL 1.7 MG/DL (1.8-2.4); SODIUM LEVEL 136 MMOL/L (136-145)
[2024-05-27 07:47] LABS: VITAMIN B12 LEVEL 259 PG/ML (211-911)
[2024-05-27] MEDS: PANTOPRAZOLE 40MG TAB (PROTONIX) PO SCH (08:22)
[2024-05-27] MEDS: POTASSIUM CHLORIDE 10MEQ SR TABLET PO SCH (08:22)
[2024-05-27] MEDS: ASPIRIN 81MG ENTERIC TABLET PO SCH (08:23)
[2024-05-27] MEDS: ENOXAPARIN 40MG/0.4ML SYRINGE (J1650 PER 10MG) SC SCH (08:23)
[2024-05-27] MEDS: LIDOCAINE 5% (LIDODERM) PATCH TD SCH (08:23)
[2024-05-27] MEDS: SERTRALINE HCL 50 MG TAB PO SCH (08:23)
[2024-05-27] MEDS: PERCOCET 5MG/325MG TAB PO ONE (11:18)
[2024-05-27 12:00] VITALS: BP 113/58; TEMP 97.3; O2SAT 85
[2024-05-27 19:34] VITALS: BP 128/68; TEMP 98.1; O2SAT 89
[2024-05-27 20:00] VITALS: BP 128/68; TEMP 98.1
[2024-05-27] MEDS: MAGNESIUM OXIDE 400MG TAB (MAG-OX) PO SCH (20:44)
[2024-05-27] MEDS: PERCOCET 5MG/325MG TAB PO SCH (20:45)
[2024-05-27 21:00] VITALS: BP 128/68; TEMP 98.1; O2SAT 89
[2024-05-28 04:50] VITALS: BP 164/85; TEMP 98.1; O2SAT 97
[2024-05-28 06:52] LABS: BLOOD UREA NITROGEN 19 MG/DL (9-23); CALCIUM LEVEL 8.7 MG/DL (8.3-10.6); CARBON DIOXIDE LEVEL 28 MMOL/L (20-31); CHLORIDE LEVEL 108 MMOL/L (98-107); CREATININE FOR GFR 0.74 MG/DL (0.55-1.30); GLOMERULAR FILTRATION RATE > 60.0 (>32); GLUCOSE, FASTING 106 MG/DL (74-106); MAGNESIUM LEVEL 1.7 MG/DL (1.8-2.4); POTASSIUM SERUM 3.6 MMOL/L (3.5-5.1); SODIUM LEVEL 138 MMOL/L (136-145)
[2024-05-28 12:00] VITALS: BP 139/69; TEMP 98.2; O2SAT 94
[2024-05-28] MEDS ORDERED: ALBUTEROL 90 MCG/ACT 8GM HFA INHALER INH PRN (13:05)
[2024-05-28] MEDS: ARTIFICIAL TEARS DROPS 15ML BTL (VISINE DRY RELIEF) OU SCH (16:00)
[2024-05-29 04:00] VITALS: BP 148/78; TEMP 97.7; O2SAT 94
[2024-05-29] MEDS: MORPHINE 2 MG/ML 1ML VIAL IV PRN (06:47)
[2024-05-29 07:38] LABS: BLOOD UREA NITROGEN 16 MG/DL (9-23); CALCIUM LEVEL 8.6 MG/DL (8.3-10.6); CARBON DIOXIDE LEVEL 31 MMOL/L (20-31); CHLORIDE LEVEL 107 MMOL/L (98-107); CREATININE FOR GFR 0.71 MG/DL (0.55-1.30); GLOMERULAR FILTRATION RATE > 60.0 (>32); GLUCOSE, FASTING 99 MG/DL (74-106); MAGNESIUM LEVEL 1.8 MG/DL (1.8-2.4); POTASSIUM SERUM 4.2 MMOL/L (3.5-5.1); SODIUM LEVEL 139 MMOL/L (136-145)
[2024-05-29 12:00] VITALS: BP 144/67; TEMP 97.7; O2SAT 97
[2024-05-30 04:00] VITALS: BP 161/67; TEMP 97.7; O2SAT 96
[2024-05-30 07:32] LABS: BLOOD UREA NITROGEN 11 MG/DL (9-23); CALCIUM LEVEL 8.8 MG/DL (8.3-10.6); CARBON DIOXIDE LEVEL 32 MMOL/L (20-31); CHLORIDE LEVEL 105 MMOL/L (98-107); CREATININE FOR GFR 0.68 MG/DL (0.55-1.30); GLOMERULAR FILTRATION RATE > 60.0 (>32); GLUCOSE, FASTING 100 MG/DL (74-106); POTASSIUM SERUM 4.4 MMOL/L (3.5-5.1); SODIUM LEVEL 138 MMOL/L (136-145)
[2024-05-30] MEDS: ONDANSETRON 4MG 2ML VIAL IV PRN (11:26)
[2024-05-30 12:00] VITALS: BP 174/78; TEMP 97.9; O2SAT 98
[2024-05-31 04:07] VITALS: BP 163/80; TEMP 97.9; O2SAT 95
[2024-05-31 20:29] VITALS: BP 135/67
[2024-06-01 04:05] VITALS: BP 178/92; TEMP 97.9; O2SAT 96
[2024-06-01 05:44] VITALS: BP 168/74
[2024-06-01 05:46] VITALS: O2SAT 96
[2024-06-01 06:36] VITALS: BP 127/69
[2024-06-01] MEDS ORDERED: LIDO5TD TD (12:53)
[2024-06-01] MEDS ORDERED: PERCOCET PO (12:53)
== END 2024-06-01 14:40 | DRG 536 ==
LOC: EDBD 13:09 → M ED 13:09 → M ED INP 17:07 → M MS5PR 21:00
PROVIDERS: ADMIT Student in an Organized Health Care Education/Training Program; ATTEND Student in an Organized Health Care Education/Training Program
DX: S32.511A Fracture of superior rim of right pubis, initial encounter for closed fracture (principal); I48.20 Chronic atrial fibrillation, unspecified; E78.5 Hyperlipidemia, unspecified; J44.9 Chronic obstructive pulmonary disease, unspecified; K59.09 Other constipation; I10 Essential (primary) hypertension; H40.9 Unspecified glaucoma; K21.9 Gastro-esophageal reflux disease without esophagitis; E83.42 Hypomagnesemia; Z66 Do not resuscitate; W18.09XA Striking against other object with subsequent fall, initial encounter; Y93.89 Activity, other specified; Y99.8 Other external cause status; J30.9 Allergic rhinitis, unspecified; Y92.018 Other place in single-family (private) house as the place of occurrence of the external cause; I16.0 Hypertensive urgency; S32.512A Fracture of superior rim of left pubis, initial encounter for closed fracture; S32.591A Other specified fracture of right pubis, initial encounter for closed fracture; D53.9 Nutritional anemia, unspecified; Z79.899 Other long term (current) drug therapy; Z88.0 Allergy status to penicillin; Z88.5 Allergy status to narcotic agent; Z86.73 Personal history of transient ischemic attack (TIA), and cerebral infarction without residual deficits

== ENCOUNTER 2024-06-10 18:15 | Inpatient (IN) | payer MEDICARE ==
[~2024-06-10] VITALS: Ht 149.9 cm; Wt 55.5 kg
[~2024-06-10 18:15] MED LIST changes: +ALBU8.5H INH; +ASPI-226 PO; +BIMA01SOL OU; +DORZ2SOL4 OU; +HYDR-643 PO; +LEVOTAB10 PO; +LIDO5TD TD; +MELA5TAB58 PO; +PANT-23 PO; +PERCOCET PO; +POTA-298 PO; +POTA1TAB23 PO; +SERT50TA29 PO; +SYST1SOL OU; +VALS1TAB68 PO
[2024-06-10 19:15] VITALS: BP 159/73; TEMP 97.5; O2SAT 97
[2024-06-10 21:31] LABS: BASO % 0.6 % (0.0-1.0); EOS # 0.2 10^3/uL (0.0-0.5); EOS % 3.2 % (0.0-3.0); HEMATOCRIT 28.2 % (36.0-47.0); HEMOGLOBIN 9.4 g/dl (12.0-15.5); LYMPH # 1.4 10^3/uL (1.5-5.0); LYMPH % 21.7 % (24.0-44.0); MEAN CORPUSCULAR HGB CONC 33.3 g/dl (32.0-36.5); MEAN CORPUSCULAR VOLUME 98.9 fl (80.0-96.0); MONO # 0.8 10^3/uL (0.0-0.8); MONO % 12.8 % (2.0-8.0); NEUTROPHILS # 3.9 10^3/uL (1.5-8.5); NEUTROPHILS % 61.5 % (36.0-66.0); PLATELET COUNT, AUTOMATED 300 10^3/uL (150-450); RED BLOOD COUNT 2.85 10^6/uL (4.00-5.40); WHITE BLOOD COUNT 6.3 10^3/uL (4.0-10.0)
[2024-06-10 21:51] LABS: BLOOD UREA NITROGEN 16 MG/DL (9-23); CALCIUM LEVEL 8.5 MG/DL (8.3-10.6); CARBON DIOXIDE LEVEL 29 MMOL/L (20-31); CHLORIDE LEVEL 102 MMOL/L (98-107); CREATININE FOR GFR 0.79 MG/DL (0.55-1.30); GLOMERULAR FILTRATION RATE > 60.0 (>32); GLUCOSE, FASTING 121 MG/DL (74-106); MAGNESIUM LEVEL 1.8 MG/DL (1.8-2.4); SODIUM LEVEL 134 MMOL/L (136-145)
[2024-06-10] MEDS ORDERED: MAALOX 30 ML SUSP *UDC PO PRN (21:55)
[2024-06-10] MEDS ORDERED: MOM 30ML SUSPENSION UDC PO PRN (21:55)
[2024-06-10] MEDS: RAMELTEON 8 MG TAB (ROZEREM) PO SCH (22:18)
[2024-06-10] MEDS: ACETAMINOPHEN 325 MG TAB PO PRN (22:20)
[2024-06-10] MEDS ORDERED: PERCOCET 5MG/325MG TAB PO PRN (22:30)
[2024-06-10] MEDS: LIDOCAINE 5% (LIDODERM) PATCH TD ONE (22:35)
[2024-06-10] MEDS ORDERED: METH-1164 PO (22:49)
[2024-06-10] MEDS ORDERED: LIDO5DIS41 TOP (22:49)
[2024-06-10] MEDS ORDERED: ALBU1.25 INH (22:49)
[2024-06-10] MEDS ORDERED: DOCU100C16 PO (22:49)
[2024-06-10] MEDS ORDERED: ACET-897 PO (22:49)
[2024-06-10] MEDS ORDERED: HYDR-643 PO (22:49)
[2024-06-10] MEDS ORDERED: HEPARIN INJ (22:49)
[2024-06-10] MEDS ORDERED: POLY17PO18 PO (22:49)
[2024-06-10] MEDS ORDERED: OXYC-517 PO (22:49)
[2024-06-10] MEDS ORDERED: ONDA-282 PO (22:49)
[2024-06-10] MEDS ORDERED: ASPI81CH33 PO (22:49)
[2024-06-10] MEDS ORDERED: HOME MED LIST COMPLETE! XX SCH (22:55)
[2024-06-10] MEDS: PERCOCET 5MG/325MG TAB PO PRN (23:31)
[2024-06-10] MEDS: ARTIFICIAL TEARS DROPS 15ML BTL (VISINE DRY RELIEF) OU SCH (23:33)
[2024-06-11] VITALS (16 sets, daily range): BP systolic 80–182; BP diastolic 40–86; TEMP 97.2–97.7; O2SAT 95–99
[2024-06-11] MEDS ORDERED: MIRALAX *UNIT DOSE* 17GM PACKET PO PRN (05:00)
[2024-06-11] MEDS ORDERED: ALBUTEROL SULFATE 2.5MG/0.5ML INH NEB SOLN NEB PRN (05:00)
[2024-06-11 06:25] LABS: BLOOD UREA NITROGEN 16 MG/DL (9-23); CALCIUM LEVEL 8.8 MG/DL (8.3-10.6); CARBON DIOXIDE LEVEL 30 MMOL/L (20-31); CHLORIDE LEVEL 105 MMOL/L (98-107); CREATININE FOR GFR 0.83 MG/DL (0.55-1.30); GLOMERULAR FILTRATION RATE > 60.0 (>32); GLUCOSE, FASTING 93 MG/DL (74-106); MAGNESIUM LEVEL 1.8 MG/DL (1.8-2.4); POTASSIUM SERUM 4.2 MMOL/L (3.5-5.1); SODIUM LEVEL 137 MMOL/L (136-145)
[2024-06-11] MEDS: NS 500 ML IV ONE (07:10)
[2024-06-11] MEDS: VALSARTAN 80 MG TAB (DIOVAN) PO SCH (08:56)
[2024-06-11] MEDS: DORZOLAMIDE 2% OPHTH SOLN 10 ML BTL OU SCH (08:57)
[2024-06-11] MEDS: ACETAMINOPHEN 500 MG TAB PO SCH (08:59)
[2024-06-11] MEDS: SERTRALINE HCL 50 MG TAB PO SCH (08:59)
[2024-06-11] MEDS: PANTOPRAZOLE 40MG TAB (PROTONIX) PO SCH (08:59)
[2024-06-11] MEDS: ATORVASTATIN 10 MG TAB PO SCH (08:59)
[2024-06-11] MEDS: DOCUSATE SODIUM 100MG CAPSULE PO SCH (09:00)
[2024-06-11] MEDS ORDERED: KETOROLAC 30 MG/ML 1ML VIAL IV SCH (09:00)
[2024-06-11] MEDS: SENNA 8.6 MG TAB (SENOKOT) PO SCH (09:00)
[2024-06-11] MEDS ORDERED: ASPIRIN 81MG CHEW TABLET PO SCH (09:00)
[2024-06-11] MEDS ORDERED: fentaNYL 100 MCG/2 ML INJECTION As Ordered ONE (12:33)
[2024-06-11] MEDS ORDERED: ROCURONIUM BROMIDE 50MG/5ML VIAL As Ordered ONE (12:33)
[2024-06-11] MEDS ORDERED: ONDANSETRON 4MG 2ML VIAL As Ordered ONE (12:33)
[2024-06-11] MEDS ORDERED: LIDOCAINE 2% 100MG/5ML SDV (FOR ANES.) As Ordered ONE (12:33)
[2024-06-11] MEDS ORDERED: propofoL 200 MG/20 ML VIAL As Ordered ONE (12:33)
[2024-06-11] MEDS: TRANEXAMIC ACID 100 MG/ML 10ML VIAL As Ordered ONE (13:20)
[2024-06-11] MEDS: ceFAZolin 1GM VIAL As Ordered ONE (13:57)
[2024-06-11] MEDS: VANCOMYCIN 1000MG/20ML VIAL As Ordered ONE (13:57)
[2024-06-11] MEDS ORDERED: ACETAMINOPHEN 1000MG 100ML IV BAG As Ordered ONE (13:57)
[2024-06-11] MEDS ORDERED: PHENYLephrine 500MCG 5ML (100MCG/ML) SYRINGE As Ordered ONE (14:26)
[2024-06-11] MEDS ORDERED: KETOROLAC 60MG 2ML VIAL As Ordered ONE (14:36)
[2024-06-11] MEDS: ONDANSETRON 4MG 2ML VIAL IV PRN (15:15)
[2024-06-11] MEDS ORDERED: fentaNYL 100 MCG/2 ML INJECTION IV PRN (15:30)
[2024-06-11] MEDS ORDERED: HYDROMORPHONE HCL 0.5 MG/ 0.5 ML SYRINGE IV PRN (15:30)
[2024-06-11] MEDS: LR 1,000 ML IV SCH (15:30)
[2024-06-11] MEDS ORDERED: ONDANSETRON 4MG 2ML VIAL IV PRN (15:30)
[2024-06-11] MEDS ORDERED: oxyCODONE 5MG TAB PO PRN (15:30)
[2024-06-11 20:01] LABS: BASO % 0.2 % (0.0-1.0); HEMATOCRIT 23.7 % (36.0-47.0); HEMOGLOBIN 7.8 g/dl (12.0-15.5); LYMPH # 0.5 10^3/uL (1.5-5.0); LYMPH % 4.2 % (24.0-44.0); MEAN CORPUSCULAR HEMOGLOBIN 32.9 pg (27.0-33.0); MEAN CORPUSCULAR HGB CONC 32.9 g/dl (32.0-36.5); MONO # 0.7 10^3/uL (0.0-0.8); MONO % 6.2 % (2.0-8.0); NEUTROPHILS # 9.7 10^3/uL (1.5-8.5); NEUTROPHILS % 88.9 % (36.0-66.0); PLATELET COUNT, AUTOMATED 307 10^3/uL (150-450); RED BLOOD COUNT 2.37 10^6/uL (4.00-5.40); WHITE BLOOD COUNT 10.9 10^3/uL (4.0-10.0)
[2024-06-11 20:24] LABS: ALKALINE PHOSPHATASE 89 U/L (35-104); ALT/SGPT 13 U/L (7.0-40); AST/SGOT 20 U/L (<34); BILIRUBIN,TOTAL 0.4 MG/DL (0.3-1.2); BLOOD UREA NITROGEN 18 MG/DL (9-23); CALCIUM LEVEL 7.9 MG/DL (8.3-10.6); CARBON DIOXIDE LEVEL 27 MMOL/L (20-31); CHLORIDE LEVEL 106 MMOL/L (98-107); CREATININE FOR GFR 0.83 MG/DL (0.55-1.30); GLOMERULAR FILTRATION RATE > 60.0 (>32); GLUCOSE, FASTING 164 MG/DL (74-106); MAGNESIUM LEVEL 1.6 MG/DL (1.8-2.4); POTASSIUM SERUM 4.6 MMOL/L (3.5-5.1); SODIUM LEVEL 135 MMOL/L (136-145); TOTAL PROTEIN 5.3 G/DL (5.7-8.2)
[2024-06-11] MEDS: ceFAZolin SOD 2 GM in IV 1 EA IV SCH (20:45)
[2024-06-11] MEDS: LIDOCAINE 5% (LIDODERM) PATCH TD SCH (20:48)
[2024-06-11] MEDS: LATANOPROST 0.005% OPHTH SOLN 2.5 ML OU SCH (20:50)
[2024-06-11] MEDS ORDERED: HEPARIN SOD (PORCINE) 5000UNITS/ML 1ML VIAL/SYRINGE SC SCH (21:00)
[2024-06-11] MEDS: MAGNESIUM OXIDE 400MG TAB (MAG-OX) PO ONE (22:38)
[2024-06-11] MEDS: MIDODRINE 2.5 MG TAB PO ONE (23:18)
[2024-06-12] VITALS (11 sets, daily range): BP systolic 88–132; BP diastolic 36–70; TEMP 97.2–97.7; O2SAT 91–99
[2024-06-12 04:00] LABS: BASO % 0.4 % (0.0-1.0); EOS % 0.3 % (0.0-3.0); HEMATOCRIT 28.7 % (36.0-47.0); HEMOGLOBIN 9.5 g/dl (12.0-15.5); LYMPH # 1.3 10^3/uL (1.5-5.0); LYMPH % 13.5 % (24.0-44.0); MEAN CORPUSCULAR HEMOGLOBIN 31.5 pg (27.0-33.0); MEAN CORPUSCULAR HGB CONC 33.1 g/dl (32.0-36.5); MONO # 1.2 10^3/uL (0.0-0.8); MONO % 12.7 % (2.0-8.0); NEUTROPHILS # 6.9 10^3/uL (1.5-8.5); NEUTROPHILS % 72.6 % (36.0-66.0); PLATELET COUNT, AUTOMATED 278 10^3/uL (150-450); RED BLOOD COUNT 3.02 10^6/uL (4.00-5.40); WHITE BLOOD COUNT 9.6 10^3/uL (4.0-10.0)
[2024-06-12 04:43] LABS: BILIRUBIN,TOTAL 1.1 MG/DL (0.3-1.2); CALCIUM LEVEL 8.2 MG/DL (8.3-10.6); CREATININE FOR GFR 0.95 MG/DL (0.55-1.30); GLOMERULAR FILTRATION RATE 59.5 (>32); MAGNESIUM LEVEL 1.8 MG/DL (1.8-2.4); POTASSIUM SERUM 4.6 MMOL/L (3.5-5.1); TOTAL PROTEIN 5.2 G/DL (5.7-8.2)
[2024-06-12] MEDS: KETOROLAC 30 MG/ML 1ML VIAL IV SCH (08:46)
[2024-06-13 03:52] VITALS: BP 142/65; TEMP 97.3; O2SAT 97
[2024-06-13 05:59] LABS: BASO # 0.1 10^3/uL (0.0-0.2); BASO % 0.7 % (0.0-1.0); EOS # 0.3 10^3/uL (0.0-0.5); EOS % 3.7 % (0.0-3.0); HEMATOCRIT 29.4 % (36.0-47.0); HEMOGLOBIN 9.5 g/dl (12.0-15.5); LYMPH # 1.2 10^3/uL (1.5-5.0); LYMPH % 16.4 % (24.0-44.0); MEAN CORPUSCULAR HEMOGLOBIN 31.4 pg (27.0-33.0); MEAN CORPUSCULAR HGB CONC 32.3 g/dl (32.0-36.5); MONO # 0.8 10^3/uL (0.0-0.8); NEUTROPHILS % 67.9 % (36.0-66.0); PLATELET COUNT, AUTOMATED 249 10^3/uL (150-450); RED BLOOD COUNT 3.03 10^6/uL (4.00-5.40); WHITE BLOOD COUNT 7.3 10^3/uL (4.0-10.0)
[2024-06-13 06:34] LABS: BLOOD UREA NITROGEN 26 MG/DL (9-23); CALCIUM LEVEL 8.6 MG/DL (8.3-10.6); CARBON DIOXIDE LEVEL 27 MMOL/L (20-31); CHLORIDE LEVEL 108 MMOL/L (98-107); CREATININE FOR GFR 0.88 MG/DL (0.55-1.30); GLOMERULAR FILTRATION RATE > 60.0 (>32); GLUCOSE, FASTING 91 MG/DL (74-106); POTASSIUM SERUM 4.7 MMOL/L (3.5-5.1); SODIUM LEVEL 139 MMOL/L (136-145)
[2024-06-13] MEDS: ENOXAPARIN 30MG/0.3ML SYRINGE (J1650 PER 10MG) SC SCH (08:23)
[2024-06-13] MEDS ORDERED: ENOXAPARIN 40MG/0.4ML SYRINGE (J1650 PER 10MG) SC SCH (09:00)
[2024-06-13 12:00] VITALS: BP 140/65; TEMP 97.5; O2SAT 95
[2024-06-13 20:00] VITALS: BP 120/59; TEMP 97.7; O2SAT 97
[2024-06-14 04:00] VITALS: BP 148/68; TEMP 97.2; O2SAT 98
[2024-06-14 05:40] LABS: BASO # 0.1 10^3/uL (0.0-0.2); BASO % 0.8 % (0.0-1.0); EOS # 0.4 10^3/uL (0.0-0.5); HEMATOCRIT 27.7 % (36.0-47.0); HEMOGLOBIN 8.9 g/dl (12.0-15.5); LYMPH # 1.7 10^3/uL (1.5-5.0); LYMPH % 23.2 % (24.0-44.0); MEAN CORPUSCULAR HEMOGLOBIN 31.6 pg (27.0-33.0); MEAN CORPUSCULAR HGB CONC 32.1 g/dl (32.0-36.5); MEAN CORPUSCULAR VOLUME 98.2 fl (80.0-96.0); MONO # 0.8 10^3/uL (0.0-0.8); MONO % 11.3 % (2.0-8.0); NEUTROPHILS # 4.2 10^3/uL (1.5-8.5); NEUTROPHILS % 58.3 % (36.0-66.0); PLATELET COUNT, AUTOMATED 253 10^3/uL (150-450); RED BLOOD COUNT 2.82 10^6/uL (4.00-5.40); WHITE BLOOD COUNT 7.2 10^3/uL (4.0-10.0)
[2024-06-14 06:04] LABS: BLOOD UREA NITROGEN 29 MG/DL (9-23); CALCIUM LEVEL 8.2 MG/DL (8.3-10.6); CARBON DIOXIDE LEVEL 27 MMOL/L (20-31); CHLORIDE LEVEL 108 MMOL/L (98-107); CREATININE FOR GFR 0.85 MG/DL (0.55-1.30); GLOMERULAR FILTRATION RATE > 60.0 (>32); GLUCOSE, FASTING 90 MG/DL (74-106); POTASSIUM SERUM 4.7 MMOL/L (3.5-5.1); SODIUM LEVEL 137 MMOL/L (136-145)
[2024-06-14 12:00] VITALS: BP 122/61; TEMP 97.7; O2SAT 96
[2024-06-14] MEDS ORDERED: oxyCODONE 5MG TAB PO PRN (12:45)
[2024-06-14] MEDS ORDERED: LOVE1INJ2 SC (13:58)
[2024-06-14] MEDS ORDERED: NAPR-849 PO (13:58)
[2024-06-14] MEDS ORDERED: NAPROXEN 250 MG TAB PO SCH (21:00)
== END 2024-06-14 15:13 | DRG 522 ==
LOC: M MSPAV 20:05
PROVIDERS: ADMIT Hospitalist; ATTEND Internal Medicine Nephrology
PROC: 0SRR0J9 Replacement of Right Hip Joint, Femoral Surface with Synthetic Substitute, Cemented, Open Approach (ICD-10-PCS; principal; 2024-06-11 12:30)
DX: S72.011A Unspecified intracapsular fracture of right femur, initial encounter for closed fracture (principal); I48.20 Chronic atrial fibrillation, unspecified; D62 Acute posthemorrhagic anemia; E78.5 Hyperlipidemia, unspecified; I10 Essential (primary) hypertension; J45.909 Unspecified asthma, uncomplicated; F41.9 Anxiety disorder, unspecified; I95.81 Postprocedural hypotension; R32 Unspecified urinary incontinence; K59.09 Other constipation; H40.9 Unspecified glaucoma; K21.9 Gastro-esophageal reflux disease without esophagitis; H26.9 Unspecified cataract; D53.9 Nutritional anemia, unspecified; Z66 Do not resuscitate; Z79.82 Long term (current) use of aspirin; Z86.73 Personal history of transient ischemic attack (TIA), and cerebral infarction without residual deficits; Z79.899 Other long term (current) drug therapy; Z88.0 Allergy status to penicillin; Z88.5 Allergy status to narcotic agent; W18.09XA Striking against other object with subsequent fall, initial encounter; Y93.89 Activity, other specified; Y99.8 Other external cause status; Y92.018 Other place in single-family (private) house as the place of occurrence of the external cause

== ENCOUNTER 2024-06-14 12:50 | Inpatient (IN) | payer MEDICARE ==
[~2024-06-14] VITALS: Ht 149.9 cm; Wt 55.5 kg
[~2024-06-14 12:50] MED LIST changes: +ACET-897 PO; +ALBU1.25 INH; +ASPI81CH33 PO; +DOCU100C16 PO; +HEPARIN INJ; +LIDO5DIS41 TOP; +METH-1164 PO; +ONDA-282 PO; +OXYC-517 PO; +POLY17PO18 PO
[2024-06-14] MEDS ORDERED: LOVE1INJ2 SC (13:58)
[2024-06-14] MEDS ORDERED: NAPR-849 PO (13:58)
[2024-06-14 15:20] VITALS: BP 139/68; TEMP 98.3; O2SAT 98
[2024-06-14] MEDS ORDERED: SIMETHICONE 80MG CHEW TAB PO PRN (15:20)
[2024-06-14] MEDS ORDERED: BISACODYL 10MG SUPP PR PRN (15:20)
[2024-06-14] MEDS ORDERED: ALBUTEROL 90 MCG/ACT 8GM HFA INHALER INH PRN (15:20)
[2024-06-14] MEDS ORDERED: ARTIFICIAL TEARS DROPS 15ML BTL (VISINE DRY RELIEF) OU PRN (15:20)
[2024-06-14] MEDS ORDERED: MAALOX 30 ML SUSP *UDC PO PRN (15:20)
[2024-06-14] MEDS ORDERED: MOM 30ML SUSPENSION UDC PO PRN (15:20)
[2024-06-14] MEDS: oxyCODONE 5MG TAB PO PRN (16:47)
[2024-06-14 19:24] VITALS: BP 118/58; TEMP 97.9; O2SAT 96
[2024-06-14] MEDS: RAMELTEON 8 MG TAB (ROZEREM) PO SCH (19:38)
[2024-06-14] MEDS: ACETAMINOPHEN 500 MG TAB PO SCH (19:38)
[2024-06-14] MEDS: NAPROXEN 250 MG TAB PO SCH (19:38)
[2024-06-14] MEDS: LATANOPROST 0.005% OPHTH SOLN 2.5 ML OU SCH (19:39)
[2024-06-14] MEDS: SENOKOT S TAB PO SCH (19:39)
[2024-06-14] MEDS: DORZOLAMIDE 2% OPHTH SOLN 10 ML BTL OU SCH (19:39)
[2024-06-15 04:33] VITALS: BP 167/73; TEMP 97.9; O2SAT 96
[2024-06-15 06:58] VITALS: BP 142/62
[2024-06-15 08:03] LABS: BASO % 0.5 % (0.0-1.0); EOS # 0.3 10^3/uL (0.0-0.5); EOS % 4.5 % (0.0-3.0); HEMOGLOBIN 8.5 g/dl (12.0-15.5); LYMPH # 1.1 10^3/uL (1.5-5.0); LYMPH % 18.1 % (24.0-44.0); MEAN CORPUSCULAR HEMOGLOBIN 30.8 pg (27.0-33.0); MEAN CORPUSCULAR HGB CONC 31.5 g/dl (32.0-36.5); MEAN CORPUSCULAR VOLUME 97.8 fl (80.0-96.0); MONO # 0.6 10^3/uL (0.0-0.8); MONO % 9.8 % (2.0-8.0); NEUTROPHILS % 66.6 % (36.0-66.0); PLATELET COUNT, AUTOMATED 263 10^3/uL (150-450); RED BLOOD COUNT 2.76 10^6/uL (4.00-5.40)
[2024-06-15] MEDS: ATORVASTATIN 10 MG TAB PO SCH (08:07)
[2024-06-15] MEDS: PANTOPRAZOLE 40MG TAB (PROTONIX) PO SCH (08:09)
[2024-06-15] MEDS: SERTRALINE HCL 50 MG TAB PO SCH (08:09)
[2024-06-15] MEDS: LIDOCAINE 5% (LIDODERM) PATCH TOP SCH (08:10)
[2024-06-15] MEDS: ENOXAPARIN 30MG/0.3ML SYRINGE (J1650 PER 10MG) SC SCH (08:10)
[2024-06-15] MEDS: MIRALAX *UNIT DOSE* 17GM PACKET PO SCH (08:12)
[2024-06-15 08:32] LABS: BLOOD UREA NITROGEN 24 MG/DL (9-23); CALCIUM LEVEL 8.5 MG/DL (8.3-10.6); CARBON DIOXIDE LEVEL 28 MMOL/L (20-31); CHLORIDE LEVEL 109 MMOL/L (98-107); CREATININE FOR GFR 0.69 MG/DL (0.55-1.30); GLOMERULAR FILTRATION RATE > 60.0 (>32); GLUCOSE, FASTING 96 MG/DL (74-106); SODIUM LEVEL 138 MMOL/L (136-145)
[2024-06-15 11:58] VITALS: BP 129/63; TEMP 99.3; O2SAT 96
[2024-06-15] MEDS: VALSARTAN 80 MG TAB (DIOVAN) PO ONE (14:54)
[2024-06-15 20:00] VITALS: BP 155/72; TEMP 97; O2SAT 98
[2024-06-16 03:30] VITALS: BP 162/74; TEMP 95.5; O2SAT 97
[2024-06-16] MEDS: ONDANSETRON 4MG TAB PO PRN (05:40)
[2024-06-16] MEDS: VALSARTAN 80 MG TAB (DIOVAN) PO SCH (08:40)
[2024-06-16] MEDS: DOCUSATE SODIUM 100MG CAPSULE PO SCH (08:40)
[2024-06-16 12:00] VITALS: BP 114/57; TEMP 98.4; O2SAT 96
[2024-06-16 20:00] VITALS: BP 119/59; TEMP 97.7; O2SAT 95
[2024-06-17 04:00] VITALS: BP 128/65; TEMP 97; O2SAT 98
[2024-06-17] MEDS: methocarbamoL 750 MG TAB PO PRN (09:08)
[2024-06-17 12:00] VITALS: BP 127/63; TEMP 97.9; O2SAT 97
[2024-06-17 20:00] VITALS: BP 116/57; TEMP 96.9; O2SAT 98
[2024-06-17] MEDS: GABAPENTIN 100 MG CAP PO SCH (20:11)
[2024-06-17] MEDS: LIDOCAINE 5% (LIDODERM) PATCH TD PRN (20:12)
[2024-06-18 04:00] VITALS: BP_SYST 143; TEMP 96; O2SAT 97
[2024-06-18 06:49] LABS: BASO % 0.8 % (0.0-1.0); EOS # 0.3 10^3/uL (0.0-0.5); EOS % 5.1 % (0.0-3.0); HEMATOCRIT 26.6 % (36.0-47.0); HEMOGLOBIN 8.4 g/dl (12.0-15.5); LYMPH # 1.2 10^3/uL (1.5-5.0); LYMPH % 22.6 % (24.0-44.0); MEAN CORPUSCULAR HEMOGLOBIN 31.5 pg (27.0-33.0); MEAN CORPUSCULAR HGB CONC 31.6 g/dl (32.0-36.5); MEAN CORPUSCULAR VOLUME 99.6 fl (80.0-96.0); MONO # 0.6 10^3/uL (0.0-0.8); MONO % 10.9 % (2.0-8.0); NEUTROPHILS # 3.2 10^3/uL (1.5-8.5); NEUTROPHILS % 60.2 % (36.0-66.0); PLATELET COUNT, AUTOMATED 276 10^3/uL (150-450); RED BLOOD COUNT 2.67 10^6/uL (4.00-5.40); WHITE BLOOD COUNT 5.3 10^3/uL (4.0-10.0)
[2024-06-18 07:04] LABS: BLOOD UREA NITROGEN 19 MG/DL (9-23); CALCIUM LEVEL 8.7 MG/DL (8.3-10.6); CARBON DIOXIDE LEVEL 28 MMOL/L (20-31); CHLORIDE LEVEL 110 MMOL/L (98-107); CREATININE FOR GFR 0.63 MG/DL (0.55-1.30); GLOMERULAR FILTRATION RATE > 60.0 (>32); GLUCOSE, FASTING 89 MG/DL (74-106); POTASSIUM SERUM 4.6 MMOL/L (3.5-5.1); SODIUM LEVEL 138 MMOL/L (136-145)
[2024-06-18 08:14] VITALS: BP 127/59
[2024-06-18 12:15] VITALS: BP 139/40; TEMP 97.8; O2SAT 97
[2024-06-18 21:05] VITALS: BP 145/58; TEMP 98.4; O2SAT 96
[2024-06-19 04:00] VITALS: BP 181/76; TEMP 97.5; O2SAT 98
[2024-06-19 05:09] VITALS: BP 142/58
[2024-06-19 12:00] VITALS: BP 115/56; TEMP 98.6; O2SAT 98
[2024-06-19 20:13] VITALS: BP 121/59; TEMP 97.6; O2SAT 95
[2024-06-20 04:00] VITALS: BP 142/69; TEMP 97.3; O2SAT 96
[2024-06-20] MEDS: BISACODYL 5MG TAB PO PRN (07:31)
[2024-06-20 12:00] VITALS: BP 135/75; TEMP 98.8; O2SAT 96
[2024-06-20 19:53] VITALS: BP 137/65; TEMP 96.3; O2SAT 100
[2024-06-21 04:00] VITALS: BP 144/67; TEMP 97.6; O2SAT 96
[2024-06-21 06:38] LABS: BASO % 0.5 % (0.0-1.0); EOS # 0.3 10^3/uL (0.0-0.5); EOS % 4.7 % (0.0-3.0); HEMATOCRIT 29.6 % (36.0-47.0); HEMOGLOBIN 9.2 g/dl (12.0-15.5); LYMPH # 1.6 10^3/uL (1.5-5.0); LYMPH % 24.4 % (24.0-44.0); MEAN CORPUSCULAR HEMOGLOBIN 31.5 pg (27.0-33.0); MEAN CORPUSCULAR HGB CONC 31.1 g/dl (32.0-36.5); MEAN CORPUSCULAR VOLUME 101.4 fl (80.0-96.0); MONO # 0.5 10^3/uL (0.0-0.8); NEUTROPHILS % 62.1 % (36.0-66.0); PLATELET COUNT, AUTOMATED 310 10^3/uL (150-450); RED BLOOD COUNT 2.92 10^6/uL (4.00-5.40); WHITE BLOOD COUNT 6.4 10^3/uL (4.0-10.0)
[2024-06-21 12:00] VITALS: BP 140/64; TEMP 99.2; O2SAT 96
[2024-06-21] MEDS ORDERED: METH-1165 PO (15:02)
[2024-06-21] MEDS ORDERED: ONDA-282 PO (15:02)
[2024-06-21] MEDS ORDERED: OXYC-517 PO (15:02)
[2024-06-21] MEDS ORDERED: BISAC5TA PO (15:02)
[2024-06-21] MEDS ORDERED: DIOV80TA3 PO (15:02)
[2024-06-21 20:00] VITALS: BP 125/68; TEMP 98.3; O2SAT 99
[2024-06-22 04:00] VITALS: BP 132/62; TEMP 97.1; O2SAT 94
[2024-06-22 12:00] VITALS: BP 148/74; TEMP 97.4; O2SAT 96
[2024-06-22 20:00] VITALS: BP 166/76; TEMP 98.3; O2SAT 97
[2024-06-22] MEDS: **hydrALAZINE HCL** 25 MG TAB PO PRN (20:29)
[2024-06-22 21:30] VITALS: BP 138/68
[2024-06-23 04:00] VITALS: BP 132/75; TEMP 97.1; O2SAT 94
[2024-06-23 12:00] VITALS: BP 150/74; TEMP 98.7; O2SAT 96
[2024-06-23 20:00] VITALS: BP 142/64; TEMP 97.9; O2SAT 98
[2024-06-24 04:00] VITALS: BP 142/63; TEMP 97.2; O2SAT 98
[2024-06-24 08:13] VITALS: BP 142/63
[2024-06-24 12:00] VITALS: BP 167/74; TEMP 99.3; O2SAT 100
== END 2024-06-24 12:50 | disposition home health service (06) | DRG 560 ==
LOC: M PM&R 12:50
PROVIDERS: ADMIT Physical Medicine & Rehabilitation; ATTEND Physical Medicine & Rehabilitation
DX: S72.011D Unspecified intracapsular fracture of right femur, subsequent encounter for closed fracture with routine healing (principal); I48.20 Chronic atrial fibrillation, unspecified; D62 Acute posthemorrhagic anemia; Z96.641 Presence of right artificial hip joint; J44.9 Chronic obstructive pulmonary disease, unspecified; K59.09 Other constipation; I10 Essential (primary) hypertension; E78.5 Hyperlipidemia, unspecified; J45.909 Unspecified asthma, uncomplicated; H40.9 Unspecified glaucoma; K21.9 Gastro-esophageal reflux disease without esophagitis; F41.9 Anxiety disorder, unspecified; F32.A Depression, unspecified; R32 Unspecified urinary incontinence; Z66 Do not resuscitate; Z86.73 Personal history of transient ischemic attack (TIA), and cerebral infarction without residual deficits; Z74.09 Other reduced mobility; Z74.1 Need for assistance with personal care; Z79.82 Long term (current) use of aspirin; Z79.899 Other long term (current) drug therapy; Z88.0 Allergy status to penicillin; Z88.5 Allergy status to narcotic agent

== ENCOUNTER → 2024-06-18 | Outpatient (CLI) | payer MEDICARE ==
[~2024-06-18] MED LIST changes: +BISAC5TA PO; +DIOV80TA3 PO; +LOVE1INJ2 SC; +METH-1165 PO; +NAPR-849 PO
== END ==
LOC: M SOG 07:55
PROVIDERS: ATTEND Physician Assistant
DX: M25.551 Pain in right hip (principal); Z47.89 Encounter for other orthopedic aftercare

== ENCOUNTER → 2024-06-30 | Outpatient (REF) | payer MEDICARE, BC | LOC: M LAB REF 16:37 | PROVIDERS: ATTEND Internal Medicine | DX: I48.20 Chronic atrial fibrillation, unspecified (principal); R06.82 Tachypnea, not elsewhere classified ==

== ENCOUNTER → 2024-07-05 | Outpatient (CLI) | payer MEDICARE, BC | LOC: M SOG 07:56 | PROVIDERS: ATTEND Physician Assistant | DX: Z47.89 Encounter for other orthopedic aftercare (principal); M25.551 Pain in right hip ==

== ENCOUNTER → 2024-08-16 | Outpatient (CLI) | payer MEDICARE, BC | LOC: M SOG 07:53 | PROVIDERS: ATTEND Physician Assistant | DX: Z47.89 Encounter for other orthopedic aftercare (principal); M25.551 Pain in right hip ==

== ENCOUNTER → 2024-09-21 | Outpatient (CLI) | payer MEDICARE, BC | LOC: M SOG 08:01 | PROVIDERS: ATTEND Physician Assistant | DX: M25.551 Pain in right hip (principal); Z47.89 Encounter for other orthopedic aftercare ==

== ENCOUNTER → 2024-10-05 | Outpatient (CLI) | payer MEDICARE, BC | LOC: M RAD 16:32 | PROVIDERS: ATTEND Internal Medicine | DX: S06.8 Other specified intracranial injuries (principal); R55 Syncope and collapse; W18.30XA Fall on same level, unspecified, initial encounter; Y92.009 Unspecified place in unspecified non-institutional (private) residence as the place of occurrence of the external cause ==

== ENCOUNTER → 2024-11-02 | Outpatient (CLI) | payer MEDICARE, BC | LOC: M SOG 07:50 | PROVIDERS: ATTEND Physician Assistant | DX: Z47.89 Encounter for other orthopedic aftercare (principal); M25.551 Pain in right hip ==

== ENCOUNTER → 2024-11-22 | Outpatient (CLI) | payer MEDICARE, BC | LOC: M EKG 10:42 | PROVIDERS: ATTEND Physician Assistant | DX: I48.21 Permanent atrial fibrillation (principal) ==

== ENCOUNTER → 2025-02-17 | Outpatient (CLI) | payer MEDICARE, BC ==
[~2025-02-17] MED LIST changes: +ACET-683 PO; +AMLO1TAB24 PO; +APAP325T4 PO; +ARIC1TAB PO; +CALC200T15 PO; +CLAR10TA7 PO; +FERR1TAB8 PO; +FURO20TA2 PO; +FURO40TA2 PO; +HYDR-3364 PO; +LIDO1ADH93 TOP; -LIDO5DIS41 TOP; +LOPE2CAP PO; +MAGN400T33 PO; +MOM30SS2 PO; +OXYB-54 PO; +POTA-151 PO; +RAME8TAB2 PO; +SENN18TA PO; +TRAM50TA2 PO; -VERA100C4 PO; +VERA100C6 PO; +VITA250T7 PO; +XARE10TA PO
== END ==
LOC: M SOG 14:03
PROVIDERS: ATTEND Neuromusculoskeletal Medicine, Sports Medicine
DX: S72.351A Displaced comminuted fracture of shaft of right femur, initial encounter for closed fracture (principal); X58.XXXA Exposure to other specified factors, initial encounter; Y92.9 Unspecified place or not applicable; Y93.9 Activity, unspecified; Y99.9 Unspecified external cause status; N18.31 Chronic kidney disease, stage 3a; D50.9 Iron deficiency anemia, unspecified

== ENCOUNTER → 2025-02-17 | Outpatient (REF) | payer MEDICARE, BC ==
[2025-02-17 14:47] LABS: IRON (FE) 39.0 UG/DL (50-170); PERCENT SATURATION 14.3 % (13.2-45.0)
== END ==
LOC: M LAB REF 13:41
PROVIDERS: ATTEND Internal Medicine
DX: N18.31 Chronic kidney disease, stage 3a (principal); D50.9 Iron deficiency anemia, unspecified

== ENCOUNTER → 2025-03-15 | Outpatient (CLI) | payer MEDICARE, BC | LOC: M RAD 11:28 | PROVIDERS: ATTEND Internal Medicine | DX: R60.9 Edema, unspecified (principal) ==

== ENCOUNTER → 2025-03-31 | Outpatient (CLI) | payer MEDICARE, BC | LOC: M SOG 06:56 | PROVIDERS: ATTEND Neuromusculoskeletal Medicine, Sports Medicine | DX: S72.351A Displaced comminuted fracture of shaft of right femur, initial encounter for closed fracture (principal); X58.XXXA Exposure to other specified factors, initial encounter; Y92.9 Unspecified place or not applicable; Y93.9 Activity, unspecified; Y99.9 Unspecified external cause status ==

== ENCOUNTER → 2025-07-01 | Outpatient (CLI) | payer MEDICARE, BC ==
[~2025-07-01] MED LIST changes: +CYAN250T5 PO; -VITA250T7 PO
== END ==
LOC: M SOG 07:37
PROVIDERS: ATTEND Neuromusculoskeletal Medicine, Sports Medicine
DX: S72.351D Displaced comminuted fracture of shaft of right femur, subsequent encounter for closed fracture with routine healing (principal); W18.30XD Fall on same level, unspecified, subsequent encounter